=== PATIENT | female | born 1955 | race Caucasian/White ===

== ENCOUNTER → 2016-11-17 | Outpatient (CLI) | payer OTHER ==
[~2016-11-17] MED LIST: BIOT1CAP8 PO; CALC-461 PO; CITA20TA4 PO; CPR500 PO; HYDR-5688 PO; MISCCAP80 PO; MTR500 PO; MULT-506 PO; OMEG1CAP71 PO
== END | disposition home or self-care (01) ==
LOC: C.PATHSPEC 13:57
PROVIDERS: ATTEND Dermatology
DX: R23.8 Other skin changes (principal); D23.39 Other benign neoplasm of skin of other parts of face

== ENCOUNTER → 2016-12-29 | Day surgery (SDC) | payer OTHER ==
[2016-12-15 08:18] VITALS: Ht 162.6 cm; Wt 109.1 kg
[~2016-12-29] VITALS: Ht 162.6 cm; Wt 109.1 kg
[~2016-12-29] MED LIST changes: +ATROPINE SULFATE 0.1 MG/ML 5ML SYR IV PRN; +BUPIVACAINE 0.5 % 5 MG/1 ML PF 10ML VIAL ONE; +CEFAZOLIN 1000MG/55 ML D5W IV SCH; +CEFAZOLIN 2000 MG/60 ML D5W 60 ML IV SCH; +FENTANYL CITRATE INJ 50 MCG/1 ML 2 ML VIAL IV PRN; +FENTANYL CITRATE INJ 50 MCG/1 ML 2 ML VIAL ONE; +LACTATED RINGER'S 1000ML 1,000 ML IV SCH; +LIDOCAINE HCL 1% 20 ML VIAL ONE; +LIDOCAINE HCL 2% 2 ML VIAL (20MG/ML) ONE; +MIDAZOLAM HCL 1 MG/ML 2ML VIAL ONE; -MULT-506 PO; +ONDANSETRON INJ 2 MG/ML 2 ML VIAL IV PRN; +OXYCODONE/ACETAMINOPHEN 5-325 TAB PO PRN; +PROPOFOL IV EMULSION 10 MG/ML 20 ML VIAL IV ONE; +SODIUM CHLORIDE 0.9% 1000ML 1,000 ML IV SCH
--- NOTE | 2016-12-29 08:02 | History & Physical Bridge - [place] ---
H&P Re-Evaluation Bridge Note: I have examined the patient, reviewed the History & Physical and in the interval since the performance of the History & Physical I have noted the following changes of clinical significance: No changes noted
--- NOTE | 2016-12-29 08:49 | [facility] Post Operative Brief Note ---
Immediate Operative Summary Operative Date Dec 29, 2016. Pre-Operative Diagnosis Carpal Tunnel Syndrome, left Post-Operative Diagnosis same as preop Procedure(s) Performed Left Carpal Tunnel Release Surgeon Dr. Powell Conference [facility] Manager Surgeon(s) AMBER Hassan Estimated Blood Loss 0ml Findings ABOVE Specimens none per surgeon Anesthesia LOCAL IV SEDATION Complication(s) None Disposition
[2016-12-29 08:52] VITALS: TEMP 37
--- NOTE | 2016-12-29 08:54 | Discharge Instructions-SurgCtr ---
Discharge Instructions Date of Service Dec 29, 2016. Visit Reason for Visit: Left Carpal Tunnel Syndrome Discharge Discharge Diagnosis / Problem: SAME ABOVE Discharge Goals Goal(s): Decrease discomfort, Improve function Activity Recommendations Activity Limitations: as noted below Lifting Limitations: until after follow-up appointment Exercise/Sports Limitations: until after follow-up appointment Shower/Bathe: keep incision dry MEDICATIONS: * Resume previous medications unless instructed otherwise by your surgeon. * Always take pain medication on a full stomach or with food to avoid upset stomach. * Do not drink alcohol or drive while taking narcotics. * Ibuprofen or Tylenol may be taken if narcotic not needed. SPECIAL CARE INSTRUCTIONS: __ None _X_ Keep extremity elevated and iced x 48 hours; apply ice 20-30 minutes 8-10 times/day. May remove at night. __ Sling __24 hrs/day __ Remove at night __ Shoulder Immobilizer __ 24 hrs/day __ Remove at night _X_ Dressing _X_ Maintain until seen in office, may shower with plastic over site __ Remove dressings in 24-48 hours and then may shower __ Cover incisions with band-aids after showering __ Do not remove steri-strips Call physician if chills or temperature rises above 102 degrees or pain unrelieved by prescribed pain medications at . . Anesthesia . Post Anesthesia Instructions: If you have had General Anesthesia or IV Sedation: * Do not drive today. * Resume driving when surgeon permits. * Do not make important decisions or sign legal documents today. * Call surgeon for: 1. Temperature elevations greater than 101 degrees F. 2. Uncontrollable pain. 3. Excessive bleeding. 4. Persistent nausea and vomiting. 5. Medication intolerance (nausea, vomiting or rash). * For nausea and vomiting use only clear liquids such as: tea, soda, bouillon until nausea subsides, then gradually increase diet as tolerated. * If you have any concerns or questions, call your surgeon's office. If physician is unavailable and it is an emergency, call 911 or go to the nearest emergency room. . Diet Recommendations Home Diet: resume previous diet Procedures Procedures Performed: Left Carpal Tunnel Release Pending Studies Studies pending at discharge: no Medical Emergencies . Who to Call and When: Medical Emergencies: If at any time you feel your situation is an emergency, please call 911 immediately. . Non-Emergent Contact Non-Emergency issues call your: Primary Care Provider . . "Provider Documentation" section prepared by Luke Mendez.
[2016-12-29 09:14] VITALS: BP 133/80; PULSE 63; O2SAT 96
--- NOTE | 2016-12-29 09:18 | Anesthesia Progress Nt - [facility] ---
Anesthesia Post Op Note Date & Time Dec 29, 2016 at 09:19 Vital Signs Pain Intensity: 0 Vital Signs Past 12 Hours Date Time Temp Pulse Resp B/P Pulse Ox O2 Delivery O2 Flow Rate FiO2 12/29/16 09:14 63 18 133/80 96 Room Air 12/29/16 08:52 37 73 18 116/76 96 Room Air 12/29/16 07:45 36.7 87 16 141/82 96 Room Air Notes Mental Status: alert / awake / arousable, participated in evaluation Pt Amnestic to Procedure: Yes Nausea / Vomiting: adequately controlled Pain: adequately controlled Airway Patency, RR, SpO2: stable & adequate BP & HR: stable & adequate Hydration State: stable & adequate Anesthetic Complications: no major complications apparent
--- NOTE | 2016-12-29 10:20 | OPERATIVE REPORT ---
DATE OF OPERATION: 12/29/2016 PREOPERATIVE DIAGNOSIS: Left carpal tunnel syndrome. POSTOPERATIVE DIAGNOSIS: Same. PROCEDURE: Decompression median nerve release transverse carpal ligament, left wrist. SURGEON: Osman Powell MD HANDLING TECH: Luke Mendez PA-C ANESTHESIOLOGIST: Tal Lyn MD ANESTHESIA: Local with IV sedation. DRAINS: None. COMPLICATIONS: None. CONDITION: The patient tolerated the procedure well and returned to the recovery room in apparent satisfactory condition. INDICATIONS FOR SURGERY: Elise is a 61-year-old female who has had increasing pain, numbness and tingling in the left hand consistent with carpal tunnel syndrome. Went over treatment options and elected to go ahead and proceed with surgery. Procedure, expected outcomes and side effects were all explained in detail in the office. DESCRIPTION OF PROCEDURE: The patient was taken to the OR at which time she was placed supine on the operating table. The left hand was prepped and draped in the usual sterile fashion for this surgery. The anticipated incision site was infiltrated with 1% Xylocaine. A forearm tourniquet was placed on the arm and tourniquet was placed up to 250 mmHg. Incision was made vertically over the transverse carpal tunnel ligament. Dissection was done down until the palmar fascia was identified and divided with a 15-blade. The transverse carpal ligament was identified and also divided with the 15-blade and upbiting scissors. A small portion of the forearm fascia was divided also. Electrocautery was used to control any areas of bleeding. The nerve was freed up from any scar tissue and adequately decompressed. The wound then was copiously irrigated. It was closed then with interrupted 4-0 nylon sutures. Marcaine without Epinephrine was placed in the skin edges. It was closed in a layered fashion. We placed a sterile dressing of Xeroform, 4 x 4, volar splint, and an Samuel bandage. DISPOSITION: The patient was returned back to the recovery room in apparent satisfactory condition. I attest to the content of the Intraoperative Record and any orders documented therein. Any exceptio ns are noted below.
== END | disposition home or self-care (01) ==
LOC: X.SURG 07:33
PROVIDERS: ATTEND Orthopaedic Surgery
DX: G56.02 Carpal tunnel syndrome, left upper limb (principal); M19.90 Unspecified osteoarthritis, unspecified site; Z90.49 Acquired absence of other specified parts of digestive tract; Z90.710 Acquired absence of both cervix and uterus

== ENCOUNTER → 2017-03-23 | Day surgery (SDC) | payer OTHER ==
[2017-03-05 08:50] VITALS: Ht 162.6 cm; Wt 109.1 kg
[~2017-03-23] VITALS: Ht 162.6 cm; Wt 109.1 kg
[~2017-03-23] MED LIST changes: +BUPIVACAINE 0.5 % 5 MG/1 ML MPF 30ML VIAL ONE; -BUPIVACAINE 0.5 % 5 MG/1 ML PF 10ML VIAL ONE; -CEFAZOLIN 1000MG/55 ML D5W IV SCH; -CEFAZOLIN 2000 MG/60 ML D5W 60 ML IV SCH; +CEFAZOLIN 2000 MG/60 ML D5W IV SCH; +EpHEDrine SULFATE INJ 50 MG/ML AMP IV PRN; +ONDANSETRON INJ 2 MG/ML 2 ML VIAL ONE
--- NOTE | 2017-03-23 07:13 | [facility] Post Operative Brief Note ---
Immediate Operative Summary Operative Date Mar 23, 2017. Pre-Operative Diagnosis Right Carpal Tunnel Syndrome Post-Operative Diagnosis Same Procedure(s) Performed Right Carpal Tunnel Release Surgeon Dr Powell Sealing [employer] Canceling Machine Operator Surgeon(s) Marcus Mendez PA-C Estimated Blood Loss 0ml Findings ABOVE Specimens None Anesthesia LOCAL IV SEDATION Complication(s) None Disposition
[2017-03-23 07:15] VITALS: TEMP 36.2
--- NOTE | 2017-03-23 07:17 | Discharge Instructions-SurgCtr ---
Discharge Instructions Date of Service Mar 23, 2017. Visit Reason for Visit: Right Carpal Tunnel Syndrome, Pain Discharge Discharge Diagnosis / Problem: SAME ABOVE Discharge Goals Goal(s): Decrease discomfort, Improve function Activity Recommendations Activity Limitations: as noted below Lifting Limitations: until after follow-up appointment Exercise/Sports Limitations: until after follow-up appointment Shower/Bathe: keep incision dry Anesthesia . Post Anesthesia Instructions: If you have had General Anesthesia or IV Sedation: * Do not drive today. * Resume driving when surgeon permits. * Do not make important decisions or sign legal documents today. * Call surgeon for: 1. Temperature elevations greater than 101 degrees F. 2. Uncontrollable pain. 3. Excessive bleeding. 4. Persistent nausea and vomiting. 5. Medication intolerance (nausea, vomiting or rash). * For nausea and vomiting use only clear liquids such as: tea, soda, bouillon until nausea subsides, then gradually increase diet as tolerated. * If you have any concerns or questions, call your surgeon's office. If physician is unavailable and it is an emergency, call 911 or go to the nearest emergency room. . Instructions / Follow-Up Instructions / Follow-Up MEDICATIONS: * Resume previous medications unless instructed otherwise by your surgeon. * Always take pain medication on a full stomach or with food to avoid upset stomach. * Do not drink alcohol or drive while taking narcotics. * Ibuprofen or Tylenol may be taken if narcotic not needed. SPECIAL CARE INSTRUCTIONS: __ None _X_ Keep extremity elevated and iced x 48 hours; apply ice 20-30 minutes 8-10 times/day. May remove at night. __ Sling __24 hrs/day __ Remove at night __ Shoulder Immobilizer __ 24 hrs/day __ Remove at night _X_ Dressing _X_ Maintain until seen in office, may shower with plastic over site __ Remove dressings in 24-48 hours and then may shower __ Cover incisions with band-aids after showering __ Do not remove steri-strips Call physician if chills or temperature rises above 102 degrees or pain unrelieved by prescribed pain medications at . . Diet Recommendations Home Diet: resume previous diet Procedures Procedures Performed: Right Carpal Tunnel Release Pending Studies Studies pending at discharge: no Medical Emergencies . Who to Call and When: Medical Emergencies: If at any time you feel your situation is an emergency, please call 911 immediately. . Non-Emergent Contact Non-Emergency issues call your: Primary Care Provider . . "Provider Documentation" section prepared by Luke Mendez. .
--- NOTE | 2017-03-23 07:40 | OPERATIVE REPORT ---
DATE OF OPERATION: 03/23/2017 PREOPERATIVE DIAGNOSIS: Right carpal tunnel syndrome. POSTOPERATIVE DIAGNOSIS: Same. PROCEDURE: Decompression median nerve release transverse carpal ligament, right wrist. SURGEON: Dr. Powell [employer]AL[employer] ASS[employer]ANCE LAB TECHNICIAN: Luke Mendez PA-C. ANESTHESIOLOGIST: Dr. Leblanc. ANESTHESIA: Local with IV sedation. DRAINS: None. COMPLICATIONS: None. CONDITION: The patient tolerated the procedure well and returned to the recovery room in apparent satisfactory condition. INDICATIONS FOR SURGERY: Elise is a 61-year-old female well-known to me having had left carpal tunnel surgery done back in December, who presents back in order to have her right hand done. Procedure, expected outcomes and side effects were all explained in detail. DESCRIPTION OF PROCEDURE: The patient was taken to the OR at which time, she was placed supine on the operating table. The right hand was prepped and draped in the usual sterile fashion for this surgery. The anticipated incision site was infiltrated with 1% Xylocaine. A forearm tourniquet was placed on the arm and tourniquet was placed up to 250 mmHg. Incision was made vertically over the transverse carpal tunnel ligament. Dissection was done down until the palmar fascia was identified and divided with a 15-blade. The transverse carpal ligament was identified and also divided with the 15-blade and upbiting scissors. A small portion of the forearm fascia was divided also. Electrocautery was used to control any areas of bleeding. The nerve was freed up from any scar tissue and adequately decompressed. The wound then was copiously irrigated. It was closed then with interrupted 4-0 nylon sutures. Marcaine without Epinephrine was placed in the skin edges. It was closed in a layered fashion. We placed a sterile dressing of Xeroform, 4 x 4, volar splint, and an Samuel bandage. I attest to the content of the Intraoperative Record and any orders documented therein. Any exception s are noted below.
[2017-03-23 07:41] VITALS: BP 138/80; PULSE 65; O2SAT 95
--- NOTE | 2017-03-23 07:42 | Anesthesia Progress Nt - [facility] ---
Anesthesia Post Op Note Date & Time Mar 23, 2017 at 07:42 Vital Signs Pain Intensity: 0 Vital Signs Past 12 Hours Date Time Temp Pulse Resp B/P (MAP) Pulse Ox O2 Delivery O2 Flow Rate FiO2 03/23/17 07:41 65 16 138/80 (99) 95 Room Air 03/23/17 07:15 36.2 80 16 121/72 (88) 95 Room Air 03/23/17 06:21 36.7 84 16 153/84 (107) 95 Room Air Notes Mental Status: alert / awake / arousable, participated in evaluation Pt Amnestic to Procedure: Yes Nausea / Vomiting: adequately controlled Pain: adequately controlled Airway Patency, RR, SpO2: stable & adequate BP & HR: stable & adequate Hydration State: stable & adequate Anesthetic Complications: no major complications apparent
== END | disposition home or self-care (01) ==
LOC: X.SURG 06:09
PROVIDERS: ATTEND Orthopaedic Surgery
DX: G56.01 Carpal tunnel syndrome, right upper limb (principal); Z90.49 Acquired absence of other specified parts of digestive tract; Z90.710 Acquired absence of both cervix and uterus

== ENCOUNTER → 2017-07-01 | Outpatient (CLI) | payer OTHER ==
[~2017-07-01] MED LIST changes: -ATROPINE SULFATE 0.1 MG/ML 5ML SYR IV PRN; -BUPIVACAINE 0.5 % 5 MG/1 ML MPF 30ML VIAL ONE; -CEFAZOLIN 2000 MG/60 ML D5W IV SCH; -EpHEDrine SULFATE INJ 50 MG/ML AMP IV PRN; -FENTANYL CITRATE INJ 50 MCG/1 ML 2 ML VIAL IV PRN; -FENTANYL CITRATE INJ 50 MCG/1 ML 2 ML VIAL ONE; -LACTATED RINGER'S 1000ML 1,000 ML IV SCH; -LIDOCAINE HCL 1% 20 ML VIAL ONE; -LIDOCAINE HCL 2% 2 ML VIAL (20MG/ML) ONE; -MIDAZOLAM HCL 1 MG/ML 2ML VIAL ONE; -ONDANSETRON INJ 2 MG/ML 2 ML VIAL IV PRN; -ONDANSETRON INJ 2 MG/ML 2 ML VIAL ONE; -OXYCODONE/ACETAMINOPHEN 5-325 TAB PO PRN; -PROPOFOL IV EMULSION 10 MG/ML 20 ML VIAL IV ONE; -SODIUM CHLORIDE 0.9% 1000ML 1,000 ML IV SCH
--- NOTE | 2017-07-01 15:58 | MAMMOGRAPHY REPORT ---
BILATERAL DIGITAL SCREENING MAMMOGRAM TOMOSYNTHESIS WITH CAD: 07/01/2017 CLINICAL HISTORY: Routine screening. Patient has no complaints. TECHNIQUE: Breast tomosynthesis in addition to standard 2D mammography was performed. Current study was also evaluated with a Computer Aided Detection (CAD) system. COMPARISON: Comparison is made to exams dated: 06/29/2016 mammogram, 06/25/2015 mammogram - [facility] [address], 07/27/2014 mammogram, 07/21/2013 mammogram, 07/15/2012 mammogram, and 07/07/2011 ma mmogram - [facility]. BREAST COMPOSITION: There are scattered areas of fibroglandular density in both breasts. FINDINGS: No suspicious masses, calcifications, or areas of architectural distortion are noted in ei ther breast. There has been no significant interval change compared to prior exams. IMPRESSION: ACR BI-RADS CATEGORY 1: NEGATIVE There is no mammographic evidence of malignancy. A 1 year screening mammogram is recommended. The pa tient will receive written notification of the results. Approximately 10% of breast cancers are not detected with mammography. A negative mammographic report should not delay biopsy if a clinically suggestive mass is present. Radha Jones M.D. ah/:07/01/2017 15:50:26 [employer] Professor: Jaimie JEAN(R)(M), [facility] letter sent: Normal 1/2 BI-RADS Code: ACR BI-RADS Category 1: Negative
== END | disposition home or self-care (01) ==
LOC: C.MAMM 09:25
PROVIDERS: ATTEND Obstetrics & Gynecology
DX: Z12.31 Encounter for screening mammogram for malignant neoplasm of breast (principal)

== ENCOUNTER 2017-07-03 20:37 | Inpatient (IN) | payer OTHER ==
[~2017-07-03] VITALS: Ht 162.6 cm; Wt 107.4 kg
[~2017-07-03 20:37] MED LIST changes: -BIOT1CAP8 PO; -CPR500 PO; -MTR500 PO
[2017-07-03] MEDS ORDERED: SODIUM CHLORIDE 0.9% 1000ML 1,000 ML IV STA (21:06)
[2017-07-03] MEDS ORDERED: ONDANSETRON INJ 2 MG/ML 2 ML VIAL IV STA (21:06)
[2017-07-03] MEDS ORDERED: MoRPHine SULFATE 4 MG/ML 1 ML CARP\\VIAL IV STA (21:06)
[2017-07-03] MEDS ORDERED: SODIUM CHLORIDE 0.9% 1000ML 1,000 ML IV ONE (21:06)
[2017-07-03] MEDS ORDERED: ACETAMINOPHEN 500 MG TAB PO STA (21:06)
--- NOTE | 2017-07-03 21:13 | EMERGENCY ROOM VISIT NOTE ---
History Report prepared by Pro: Rangel Luu Under the Supervision of: Dr. Luke Zaldivar M.D. First contact with patient: 20:58 Chief Complaint: ABDOMINAL PAIN Stated Complaint: PAINS IN LOWER ABDOMAN Nursing Triage Summary: Pt complains of lower abdominal pain for a week. +nausea and diarrhea. Pt has history of diverticulitis and this feels similar. Pt reports 2 weeks ago she ate corn every night for supper. History of Present Illness The patient is a 61 year old female who presents to the Emergency Room with complaints of constant lower abdominal pain that started five days ago. She rates her discomfort as an 8/10 in severity. She reports that the pain is worsened with a deep breath. The patient states that she has also been experiencing intermittent diarrhea, which she states started watery and progressed to soft stool. She states that she has been experiencing nausea as well. The patient admits that she has had similar symptoms in the past when she had Diverticulitis. She reports that she was in the hospital for a week and was given anabiotics for her Diverticulitis, but denies any surgeries. The patient states that she has not seen anyone for her current symptoms yet because she thought it was due to a "stomach bug". She reports that she did not know that she had a fever until she came to the ED. She states that she has been growing and eating her own corn for the last week and is concerned she has Diverticulitis again. The patient admits to a history of a hysterectomy in 2005 and a cholecystectomy, but denies an appendectomy. She also denies a history of Clostridium Difficile. The patient reports that her PCP is Dr. Kelly. The patient denies vomiting, cough, SOB, chest pain, melena, hematochezia, sick contact, recent travel, and well water usage. Source of History: patient, spouse/significant other Onset: five days ago Position: abdomen Symptom Intensity: 8/10 Timing: constant Modifying Factors (Worsening): other (deep breath) Associated Symptoms: + fevers, + nausea, + diarrhea, No cough, No chest pain , No SOB, No vomiting, No melena, No hematochezia Review of Systems See HPI for pertinent positives & negatives. A total of 10 systems reviewed and were otherwise negative. Past Medical & Surgical Surgical Problems: (1) S/P cholecystectomy (2) S/P hysterectomy Old medical records were reviewed. Nurse's notes were reviewed and I agree with. Family History FHx: cancer Social History Smoking Status: Never Smoker Alcohol Use: none Drug Use: none Marital Status: Housing Status: lives with significant other Current/Historical Medications Scheduled Biotin (Biotin), Unknown Dose PO DAILY Calcium Carbonate-Cholecalcife (Calcium+D3 600-800 mg-Unit), 1 TAB PO QAM Citalopram Hydrobromide (Citalopram Hydrobromide), 20 MG PO QAM [place] 3 Fatty Acids-[place] 6 Fa ([place] 3-6-9 Complex), 1 CAP PO QAM Probiotic Product (Probiotic), 1 CAP PO QAM Allergies Coded Allergies: No Known Allergies (Unverified , 03/23/17) Physical Exam Vital Signs Date Time Temp Pulse Resp B/P (MAP) Pulse Ox O2 Delivery O2 Flow Rate FiO2 07/04/17 00:03 94 16 98/48 94 Room Air 07/03/17 23:00 95 16 108/63 94 Room Air 07/03/17 22:07 94 16 110/58 94 Room Air 07/03/17 20:40 38.4 109 20 141/84 95 Room Air Physical Exam General: Well developed well nourished non ill appearing middle aged female in no acute distress, breathing comfortably on room air. Normal speech HEENT: Normal cephalic atraumatic. Pupils are equal round and reactive to light. Extraocular movements are intact. Oropharynx is pink with moist mucous membranes. No swelling of the mouth lips or tongue. Neck: Supple with a midline trachea. No meningeal signs or stiffness, no JVD or bruits. No Stridor. Chest: Clear to auscultation bilaterally. No wheezes or rhonchi. No increased work of breathing. Heart: regular rate and rhythm. Abdomen: Soft tenderness in right lower abdomen, nondistended without rebound guarding or rigidity. Extremities: No cyanosis clubbing or edema. No calf tenderness or assymetry Spine/Back. Non tender to palpation. No CVA tenderness Skin: Good turgor without rashes. Neurologic exam: Cranial nerves two through 12 are intact. Motor and sensation are intact and symmetrical throughout. Medical Decision & Procedures ER Provider Diagnostic Interpretation: CT results as stated below per my review and radiologist interpretation: ABDOMEN AND PELVIS CT WITHOUT CONTRAST CT DOSE: 1602.33 mGy.cm HISTORY: Lower abdominal pain. eval for diverticulitis TECHNIQUE: Multiaxial CT images of the abdomen and pelvis were performed without contrast. A dose lowering technique was utilized adhering to the principles of ALARA. COMPARISON STUDY: Abdomen and pelvis CT 01/02/2015. FINDINGS: Focal thickening and pericolonic fat stranding within the mid descending colon consistent with acute diverticulitis. No perforation or abscess identified at this time. The lung bases are clear. Mild hepatic steatosis. The unenhanced spleen, adrenal glands, and pancreas are unremarkable. Cholecystectomy. Right-sided nephrolithiasis. No hydronephrosis. Normal left kidney. No retroperitoneal lymphadenopathy. Normal bladder. Hysterectomy. No evidence for bowel obstruction. Normal appendix. IMPRESSION: 1. Acute diverticulitis involving the mid descending colon. No perforation or abscess. 2. Right-sided nephrolithiasis. No hydronephrosis. 3. Cholecystectomy. 4. Normal appendix. Electronically signed by: Lb Mueller M.D. 07/03/2017 10:27 PM Dictated Date/Time: 07/03/2017 10:20 PM Laboratory Results 07/03/17 21:20 Red Blood Count 3.81, Mean Corpuscular Volume 96.3, Mean Corpuscular Hemoglobin 36.0, Mean Corpuscular Hemoglobin Concent 37.3, Mean Platelet Volume 10.3, Neutrophils (%) (Auto) 68.9, Lymphocytes (%) (Auto) 22.1, Monocytes (%) (Auto) 8.3, Eosinophils (%) (Auto) 0.4, Basophils (%) (Auto) 0.1, Neutrophils # (Auto) 8.42, Lymphocytes # (Auto) 2.70, Monocytes # (Auto) 1.01, Eosinophils # (Auto) 0.05, Basophils # (Auto) 0.01 07/03/17 21:20 Test 07/03/17 21:20 07/03/17 21:26 White Blood Count 12.22 K/uL (4.8-10.8) Red Blood Count 3.81 M/uL (4.2-5.4) Hemoglobin 13.7 g/dL (12.0-16.0) Hematocrit 36.7 % (37-47) Mean Corpuscular Volume 96.3 fL (80-100) Mean Corpuscular Hemoglobin 36.0 pg (25-34) Mean Corpuscular Hemoglobin Concent 37.3 g/dl (32-36) Platelet Count 260 K/uL (130-400) Mean Platelet Volume 10.3 fL (7.4-10.4) Neutrophils (%) (Auto) 68.9 % Lymphocytes (%) (Auto) 22.1 % Monocytes (%) (Auto) 8.3 % Eosinophils (%) (Auto) 0.4 % Basophils (%) (Auto) 0.1 % Neutrophils # (Auto) 8.42 K/uL (1.4-6.5) Lymphocytes # (Auto) 2.70 K/uL (1.2-3.4) Monocytes # (Auto) 1.01 K/uL (0.11-0.59) Eosinophils # (Auto) 0.05 K/uL (0-0.5) Basophils # (Auto) 0.01 K/uL (0-0.2) RDW Standard Deviation 44.1 fL (36.4-46.3) RDW Coefficient of Variation 13.9 % (11.5-14.5) Immature Granulocyte % (Auto) 0.2 % Immature Granulocyte # (Auto) 0.03 K/uL (0.00-0.02) Anion Gap 8.0 mmol/L (3-11) Est Creatinine Clear Calc Drug Dose 102.3 ml/min Estimated GFR () 109.1 Estimated GFR (Non- 94.2 BUN/Creatinine Ratio 14.9 (10-20) Calcium Level 8.5 mg/dl (8.5-10.1) Total Bilirubin 0.8 mg/dl (0.2-1) Direct Bilirubin 0.2 mg/dl (0-0.2) Aspartate Amino Transf (AST/SGOT) 52 U/L (15-37) Alanine Aminotransferase (ALT/SGPT) 81 U/L (12-78) Alkaline Phosphatase 80 U/L (45-117) Total Protein 7.5 gm/dl (6.4-8.2) Albumin 3.6 gm/dl (3.4-5.0) Lipase 131 U/L (73-393) Bedside Lactic Acid Venous 0.82 mmol/L (0.90-1.70) Laboratory studies as stated above per my review. Medications Administered Medications (Trade) Dose Ordered Sig/Emmett Route Start Time Stop Time Status Last Admin Dose Admin Sodium Chloride 1,000 ml @ 999 mls/hr Q1H1M STAT IV 07/03/17 21:06 07/03/17 22:06 DC 07/03/17 21:18 999 MLS/HR Sodium Chloride 1,000 ml @ 150 mls/hr Q6H40M ONCE IV 07/03/17 21:06 07/04/17 03:45 07/03/17 21:18 150 MLS/HR Acetaminophen (Tylenol Tab) 1,000 mg NOW STAT PO 07/03/17 21:06 07/03/17 21:09 DC 07/03/17 21:17 1,000 MG Ondansetron HCl (Zofran Inj) 4 mg NOW STAT IV 07/03/17 21:06 07/03/17 21:09 DC 07/03/17 21:17 4 MG Morphine Sulfate (MoRPHine SULFATE INJ) 4 mg NOW STAT IV 07/03/17 21:06 07/03/17 21:09 DC 07/03/17 21:18 4 MG Ciprofloxacin/ Dextrose (Cipro / D5W) 400 mg NOW STAT IV 07/03/17 23:23 07/03/17 23:24 DC 07/04/17 00:47 400 MG Metronidazole (Flagyl / Nss) 500 mg NOW STAT IV 07/03/17 23:23 07/03/17 23:24 DC 07/03/17 23:32 500 MG ED Course 2101: Past medical records reviewed. The patient was evaluated in room C11B, and a complete history and physical examination were performed. 2106: Ordered Morphine Sulfate 4 mg IV, Zofran Injection 4 mg IV, Tylenol Tab 1000 mg PO, Sodium Chloride 1000 ml @ 150 mls/hr IV, Sodium Chloride 1000 ml @ 999 mls/hr IV. 2323: Ordered Metronidazole 500 mg IV, Cipro/ D5W 400 mg IV. 2344: I discussed the patient's case with Dr. Jones, [facility] Hospitalist. He understands the patient's condition and agrees to accept the patient. The patient will be further evaluated. Medical Decision Differentials include, but are not limited to; diverticulitis, Clostridium Difficile, colitis, appendicitis, viral illness, and electrolyte/metabolic abnormality. This patient comes in as described above. She has left lower abdominal pain. She has a history diverticulitis in 2014. She's been having diarrhea and has felt sick all week. She's had no recent antibiotics. IV access was established and she was hydrated with IV normal saline. She was given Tylenol 1 g by mouth for fever blood cultures were obtained as well as lactic acid. As well as blood testing as well. Her lactic acid is not significantly elevated. Her white count is moderately elevated. She has been normotensive. She was hydrated with IV normal saline. She was given morphine 4 mg IV and Zofran 4 mg IV for pain and nausea management. She has no peritonitis. CAT scan confirms a diabetic diagnosis of diverticulitis. Last time she had this she was admitted for a week as she had some microperforations but was ultimately managed medically. Given the length of symptoms as well as her fever and white count and age, I do think she needs to be admitted for IV antibiotics at least overnight. She was given IV Cipro and IV Flagyl. She is tolerating these well before. [facility] and she was seen in the ER by the [facility] hospitalist team. Medication Reconcilliation Current Medication List: was personally reviewed by me Blood Pressure Screening Patient's blood pressure: Normal blood pressure Consults Time Called: 2344 Consulting Physician: Dr. Jones, [facility] Hospitalist Returned Call: 2343 I discussed the patient's case with Dr. Jones, [facility] Hospitalist. He understands the patient's condition and agrees to accept the patient. The patient will be further evaluated. Impression Primary Impression: Acute diverticulitis Additional Impression: LLQ abdominal pain Scribe Attestation The scribe's documentation has been prepared under my direction and personally reviewed by me in its entirety. I confirm that the note above accurately reflects all work, treatment, procedures, and medical decision making performed by me. Departure Information Dispostion Being Evaluated By Hospitalist Referrals RV. Fraga MD (PCP) Patient Instructions My [facility] Problem Qualifiers
[2017-07-03] MEDS ORDERED: BIOT1CAP8 PO (21:32)
[2017-07-03 21:38] LABS: BASO % 0.1 %; BASO ABS # 0.01 K/uL (0-0.2); COMPLETE YES; EOS % 0.4 %; HEMATOCRIT 36.7 % (37-47); IG% 0.2 %; LYMPH % 22.1 %; MEAN CELL VOLUME 96.3 fL (80-100); MEAN CORPUSCULAR HGB CONC 37.3 g/dl (32-36); MEAN PLATELET VOLUME 10.3 fL (7.4-10.4); MONO % 8.3 %; NEUT % 68.9 %; PLATELET COUNT 260 K/uL (130-400); RED BLOOD COUNT 3.81 M/uL (4.2-5.4); WHITE BLOOD COUNT 12.22 K/uL (4.8-10.8)
[2017-07-03 22:07] LABS: BUN/CREATININE RATIO 14.9 (10-20); CALCIUM 8.5 mg/dl (8.5-10.1); CREATININE 0.7 mg/dl (0.60-1.20); POTASSIUM 3.6 mmol/L (3.5-5.1)
--- NOTE | 2017-07-03 22:28 | DIAGNOSTIC IMAGING REPORT ---
ABDOMEN AND PELVIS CT WITHOUT CONTRAST CT DOSE: 1602.33 mGy.cm HISTORY: Lower abdominal pain. eval for diverticulitis TECHNIQUE: Multiaxial CT images of the abdomen and pelvis were performed without contrast. A dose lowering technique was utilized adhering to the principles of ALARA. COMPARISON STUDY: Abdomen and pelvis CT 01/02/2015. FINDINGS: Focal thickening and pericolonic fat stranding within the mid descending colon consistent with acute diverticulitis. No perforation or abscess identified at this time. The lung bases are clear. Mild hepatic steatosis. The unenhanced spleen, adrenal glands, and pancreas are unremarkable. Cholecystectomy. Right-sided nephrolithiasis. No hydronephrosis. Normal left kidney. No retroperitoneal lymphadenopathy. Normal bladder. Hysterectomy. No evidence for bowel obstruction. Normal appendix. IMPRESSION: 1. Acute diverticulitis involving the mid descending colon. No perforation or abscess. 2. Right-sided nephrolithiasis. No hydronephrosis. 3. Cholecystectomy. 4. Normal appendix. Electronically signed by: Lb Mueller M.D. 07/03/2017 10:27 PM Dictated Date/Time: 07/03/2017 10:20 PM
[2017-07-03] MEDS ORDERED: METRONIDAZOLE 500MG / 100ML NSS IV STA (23:23)
[2017-07-03] MEDS ORDERED: CIPROFLOXACIN 400MG / 200ML D5W IV STA (23:23)
--- NOTE | 2017-07-04 00:43 | History and Physical ---
History & Physical Date & Time of Service: Jul 04, 2017 at 00:41 Chief Complaint: Pains In Lower Abdoman Primary Care Physician: RV. Fraga MD History of Present Illness Source: patient 61F with a PMHx of depression p/w a 5 day history of left sided abdominal pain and loose stools while eating. The pain has gotten to the point where she thinks she has diverticulitis again. She first had diverticulitis 4 years ago and was also hospitalized. 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 She reports fevers. She feels that the pain has improved since she came to the ER. Her regular PCP is Dr. Kelly. She has non bloody loose stools almost every time she eats. ROS: +nausea, No chest pain, no SOB, no dyspnea on exertion, no palpitations, no fevers, no chills, no vomiting, no dysuria, no rash. PMHx: Depression, pt also mentioned to me that she has a heart murmur. SHx: , lives with Past Medical/Surgical History Surgical Problems: (1) S/P cholecystectomy Status: Resolved (2) S/P hysterectomy Status: Resolved Family History FHx: cancer Social History Smoking Status: Never Smoker Smokeless Tobacco Use: No Alcohol Use: none Drug Use: none Marital Status: Housing status: lives with family Immunizations History of Influenza Vaccine: Unknown History of Tetanus Vaccine?: Unknown History of Pneumococcal: Unknown History of Hepatitis B Vaccine: Unknown Multi-Drug Resistant Organisms History of MDRO: No Allergies Coded Allergies: No Known Allergies (Unverified , 03/23/17) Home Medications Scheduled Biotin (Biotin), Unknown Dose PO DAILY Calcium Carbonate-Cholecalcife (Calcium+D3 600-800 mg-Unit), 1 TAB PO QAM Citalopram Hydrobromide (Citalopram Hydrobromide), 20 MG PO QAM [place] 3 Fatty Acids-[place] 6 Fa ([place] 3-6-9 Complex), 1 CAP PO QAM Probiotic Product (Probiotic), 1 CAP PO QAM Review of Systems Constitutional: + fever, No chills, No sweats, No weight loss Respiratory: No cough, No sputum, No shortness of breath, No dyspnea on exertion Abdomen: + nausea, + diarrhea, No pain, No vomiting, No constipation Musculoskeletal: No joint pain, No muscle pain Genitourinary - Female: No dysuria, No urinary frequency, No urinary urgency Integumentary: No rash Physical Exam Vital Signs Date Time Temp Pulse Resp B/P (MAP) Pulse Ox O2 Delivery O2 Flow Rate FiO2 07/04/17 00:03 94 16 98/48 94 Room Air 07/03/17 23:00 95 16 108/63 94 Room Air 07/03/17 22:07 94 16 110/58 94 Room Air 07/03/17 20:40 38.4 109 20 141/84 95 Room Air General Appearance: WD/WN, no apparent distress, + obese Eyes: PERRL, EOMI Respiratory/Chest: chest non-tender, lungs clear, normal breath sounds, no respiratory distress, no accessory muscle use Cardiovascular: regular rate, rhythm, no edema, no gallop, no JVD, normal peripheral pulses Abdomen/GI: + pertinent finding (rebound tenderness in the LLQ and LUQ, no rebound on the right, pain on light palpation in the LUQ. Good Bowel sounds. ) Extremities/Musculoskelatal: no pedal edema Neurologic/Psych: no motor/sensory deficits, alert, normal mood/affect, oriented x 3 Skin: no rash Diagnostics Laboratory Results Results Past 24 Hours Test 07/03/17 21:20 07/03/17 21:26 Range/Units White Blood Count 12.22 4.8-10.8 K/uL Red Blood Count 3.81 4.2-5.4 M/uL Hemoglobin 13.7 12.0-16.0 g/dL Hematocrit 36.7 37-47 % Mean Corpuscular Volume 96.3 80-100 fL Mean Corpuscular Hemoglobin 36.0 25-34 pg Mean Corpuscular Hemoglobin Concent 37.3 32-36 g/dl Platelet Count 260 130-400 K/uL Mean Platelet Volume 10.3 7.4-10.4 fL Neutrophils (%) (Auto) 68.9 % Lymphocytes (%) (Auto) 22.1 % Monocytes (%) (Auto) 8.3 % Eosinophils (%) (Auto) 0.4 % Basophils (%) (Auto) 0.1 % Neutrophils # (Auto) 8.42 1.4-6.5 K/uL Lymphocytes # (Auto) 2.70 1.2-3.4 K/uL Monocytes # (Auto) 1.01 0.11-0.59 K/uL Eosinophils # (Auto) 0.05 0-0.5 K/uL Basophils # (Auto) 0.01 0-0.2 K/uL RDW Standard Deviation 44.1 36.4-46.3 fL RDW Coefficient of Variation 13.9 11.5-14.5 % Immature Granulocyte % (Auto) 0.2 % Immature Granulocyte # (Auto) 0.03 0.00-0.02 K/uL Sodium Level 138 136-145 mmol/L Potassium Level 3.6 3.5-5.1 mmol/L Chloride Level 104 98-107 mmol/L Carbon Dioxide Level 26 21-32 mmol/L Anion Gap 8.0 3-11 mmol/L Blood Urea Nitrogen 10 7-18 mg/dl Creatinine 0.70 0.60-1.20 mg/dl Est Creatinine Clear Calc Drug Dose 102.3 ml/min Estimated GFR () 109.1 Estimated GFR (Non- 94.2 BUN/Creatinine Ratio 14.9 10-20 Random Glucose 115 70-99 mg/dl Calcium Level 8.5 8.5-10.1 mg/dl Total Bilirubin 0.8 0.2-1 mg/dl Direct Bilirubin 0.2 0-0.2 mg/dl Aspartate Amino Transf (AST/SGOT) 52 15-37 U/L Alanine Aminotransferase (ALT/SGPT) 81 12-78 U/L Alkaline Phosphatase 80 45-117 U/L Total Protein 7.5 6.4-8.2 gm/dl Albumin 3.6 3.4-5.0 gm/dl Lipase 131 73-393 U/L Bedside Lactic Acid Venous 0.82 0.90-1.70 mmol/L Microbiology Results 07/03/17 Blood Culture, Received Pending 07/03/17 Blood Culture, Received Pending Diagnostic Radiology ABDOMEN AND PELVIS CT WITHOUT CONTRAST CT DOSE: 1602.33 mGy.cm HISTORY: Lower abdominal pain. eval for diverticulitis TECHNIQUE: Multiaxial CT images of the abdomen and pelvis were performed without contrast. A dose lowering technique was utilized adhering to the principles of ALARA. COMPARISON STUDY: Abdomen and pelvis CT 01/02/2015. FINDINGS: Focal thickening and pericolonic fat stranding within the mid descending colon consistent with acute diverticulitis. No perforation or abscess identified at this time. The lung bases are clear. Mild hepatic steatosis. The unenhanced spleen, adrenal glands, and pancreas are unremarkable. Cholecystectomy. Right-sided nephrolithiasis. No hydronephrosis. Normal left kidney. No retroperitoneal lymphadenopathy. Normal bladder. Hysterectomy. No evidence for bowel obstruction. Normal appendix. IMPRESSION: 1. Acute diverticulitis involving the mid descending colon. No perforation or abscess. 2. Right-sided nephrolithiasis. No hydronephrosis. 3. Cholecystectomy. 4. Normal appendix. Impression Assessment and Plan 61F with a PMHx of depression p/w a 5 day history of left sided abdominal pain and loose stools while eating. CT showed acute diverticulitis. Pt was started on IV Cipro 400mg Q12 and Flagyl 500mg IV Q8H and made NPO except meds and put on IVF. Given first ABx dose in the ER. Acute Diverticulitis - CT did not show perforation or abscess, clinically pt does not have acute abdomen. - NPO except meds. - Cipro 400mg Q12 IV - Flagyl 500mg IV Q8H and made NPO. - Pain control with Tylenol 650mg PO Q6H PRN or Morphine 4mg IV Q4 PRN severe pain. - IVF: 125mls/hr of D5W+1/2NSS +20meq - Progress diet as tolerated. Mood Continued home med Citalopram 20mg QAM PO. Neuro: AAOx3 DVT Proph: CDs Social - No concerns. Dispo - Med Surg, Admit Full Code Attending Addendum: I have physically seen and examined this patient, have directed the resident's medical activities, and agree with the H&P as noted above with the following exceptions as noted. The patient is awake, alert and oriented 3, well-developed and well-nourished , normocephalic and atraumatic, lying in bed and in no acute distress. HEENT--PERRL, EOMI, mucous membranes and oropharynx dry. Neck--supple, no JVD or bruits, thyroid normal, trachea midline, no adenopathy. Heart--normal S1 and S2, no extra beats, no murmurs, rubs or gallops. Lungs--clear bilaterally with good air movement, no respiratory distress, no accessory muscle use. Abdomen--normal bowel sounds and soft, mildly tender LLQ, nondistended, no hernias or masses, no organomegaly, and obese. Extremities--no cyanosis, clubbing or edema. There are good distal pulses b/l. Dermatologic--normal skin turgor, normal color, warm and dry, no abnormal lymph nodes, no rash. Neurologic--cranial nerves II through XII grossly intact. Rheumatologic--normal range of motion, nontender, muscles and joints. Psychiatric--normal affect. Assessment and Plan: Acute diverticulitis-- Admitted to the medical floor. Nothing by mouth except medications. Cipro 400 mg IV every 12 hours. Flagyl 500 mg IV every 8 hours. Zofran 4 mg IV every 6 hours when necessary. D5 half-normal saline with KCl 20 mEq at 125 ML's per hour. Advised to avoid excessive amounts of any high-fiber foods at once, such as the excessive amounts of corn that precipitated this attack. She was advised to begin a low residue diet when she begins to eat again, and gradually resume higher fiber foods. She is also advised to follow-up with her PCP and/or director of first impressions for a colonoscopy after her symptoms have resolved. Level of Care Med/Surg Advanced Directives Existing Advance Directive: No Existing Living Will: No Existing Power of Bulk Materials Handling Plant Operator: No Resuscitation Status FULL RESUSCITATION VTE Prophylaxis VTE Risk Assessment Done? Y/N: Yes Risk Level: Low Given or contraindicated: SCD's Social Service Consult None Apply Resident Involvement: Resident Care Provided Care Provided: Adult Hospital Medicine
[2017-07-04] MEDS ORDERED: ALUMINUM/MAGNESIUM/SIMETH (MAALOX MAX) 30 ML UDC PO PRN (00:45)
[2017-07-04] MEDS ORDERED: ACETAMINOPHEN 325 MG TAB PO PRN (00:45)
[2017-07-04] MEDS ORDERED: ZOLPIDEM TARTRATE 5 MG TAB PO PRN ×2 (00:45)
[2017-07-04] MEDS ORDERED: MAGNESIUM HYDROXIDE SUSP 30 ML UDC PO PRN (00:45)
[2017-07-04] MEDS ORDERED: POLYETHYLENE (MIRALAX) 17 GM PACK PO PRN (00:45)
[2017-07-04] MEDS ORDERED: MoRPHine SULFATE 4 MG/ML 1 ML CARP\\VIAL IV PRN (01:15)
[2017-07-04 01:40] VITALS: BP 111/72; PULSE 77; TEMP 36.8; O2SAT 94
[2017-07-04 01:41] VITALS: Ht 162.6 cm; Wt 107.4 kg
[2017-07-04] MEDS ORDERED: INFLUENZA ADMINISTRATION CHARGE ONE (02:45)
[2017-07-04] MEDS: D5W AND 1/2NSS + 20MEQ KCL 1,000 ML IV SCH ×3 (02:45→17:58)
[2017-07-04] MEDS ORDERED: INFLUENZA VIRUS QUAD VACCINE 0.5 ML SYR IM. ONE (02:45)
[2017-07-04 07:06] VITALS: BP 118/70; PULSE 58; TEMP 36.6; O2SAT 97
[2017-07-04] MEDS: METRONIDAZOLE / NSS 500 MG in PREMIXED NSS 100 ML IV SCH ×2 (08:18→15:45)
[2017-07-04] MEDS: CITALOPRAM 20 MG TAB PO SCH (08:19)
[2017-07-04 08:51] VITALS: O2SAT 97
[2017-07-04] MEDS: ONDANSETRON INJ 2 MG/ML 2 ML VIAL IV PRN ×2 (09:56→19:47)
[2017-07-04] MEDS ORDERED: CIPROFLOXACIN / D5W 400 MG in PREMIXED IN D5W 200 ML IV SCH (12:00)
[2017-07-04 14:56] VITALS: BP 104/67; PULSE 64; TEMP 36.7; O2SAT 97
--- NOTE | 2017-07-04 16:46 | Progress Note ---
Progress Note Date of Service Jul 04, 2017. Progress Note seen in f/u from early am admission doing better less pain moving around well feeling hungry vitals noted nad breathing unlabored abd soft nd. (+) LLQ tenderness no guarding no rebound no rigidity diverticulitis - improving rapidly. advance diet, once tolerating regular food will change abx to PO and once clearly she can tolerate PO abx can go home ( hopefully in next 24hrs)
[2017-07-04] MEDS: METRONIDAZOLE 500 MG TAB PO SCH (21:17)
[2017-07-04] MEDS: CIPROFLOXACIN 500 MG TAB PO SCH (21:17)
[2017-07-04 23:20] VITALS: BP 101/64; PULSE 69; TEMP 36.7; O2SAT 98
[2017-07-05 07:26] VITALS: BP 122/55; PULSE 66; TEMP 36.6; O2SAT 94
[2017-07-05] MEDS: METRONIDAZOLE 500 MG TAB PO SCH ×2 (08:52→14:21)
[2017-07-05] MEDS: CIPROFLOXACIN 500 MG TAB PO SCH (08:52)
[2017-07-05] MEDS: CITALOPRAM 20 MG TAB PO SCH (08:52)
[2017-07-05 10:02] LABS: BASO % 0.3 %; BASO ABS # 0.02 K/uL (0-0.2); COMPLETE YES; EOS % 1.1 %; HEMATOCRIT 38.7 % (37-47); IG% 0.1 %; LYMPH % 26.2 %; LYMPH ABS # 1.89 K/uL (1.2-3.4); MEAN CELL VOLUME 94.4 fL (80-100); MEAN CORPUSCULAR HEMOGLOBIN 32.2 pg (25-34); MEAN CORPUSCULAR HGB CONC 34.1 g/dl (32-36); MEAN PLATELET VOLUME 10.2 fL (7.4-10.4); MONO % 4.4 %; NEUT % 67.9 %; PLATELET COUNT 246 K/uL (130-400); WHITE BLOOD COUNT 7.22 K/uL (4.8-10.8)
[2017-07-05 10:35] LABS: BUN/CREATININE RATIO 12.7 (10-20); CALCIUM 8.8 mg/dl (8.5-10.1); CREATININE 0.7 mg/dl (0.60-1.20); MAGNESIUM 2.3 mg/dl (1.8-2.4); POTASSIUM 3.8 mmol/L (3.5-5.1)
[2017-07-05] MEDS ORDERED: CPR500 PO (10:44)
[2017-07-05] MEDS ORDERED: MTR500 PO (10:44)
--- NOTE | 2017-07-05 10:48 | Discharge Instructions ---
Discharge Instructions Date of Service Jul 05, 2017. Admission Reason for Admission: Acute Diverticulitis Discharge Discharge Diagnosis / Problem: Acute diverticulitis Discharge Goals Goal(s): Improve disease control, Diagnostic testing, Therapeutic intervention Activity Recommendations Activity Limitations: resume your previous activity Exercise/Sports Limitations: gradually increase as tolerated Shower/Bathe: no limitations Driving or Machine Use: no limitations . Instructions / Follow-Up Instructions / Follow-Up You were admitted with acute diverticulitis of the descending colon. You were improved and tolerating a low fiber diet as well as oral antibiotics. Please finish out the total 10 day course of antibiotics and follow up with your PCP within 1-2 weeks. Current Hospital Diet Patient's current hospital diet: Low Fiber Diet Discharge Diet Recommended Diet: Low Fiber Diet (x 2 weeks, then gradually advance back to a high fiber diet to prevent diverticulitis) Procedures Procedures Performed: CT abdomen/pelvis Pending Studies Studies pending at discharge: yes List of pending studies: final Blood cultures Laboratory Results Last 24 Hours Test 07/05/17 09:52 White Blood Count 7.22 K/uL Red Blood Count 4.10 M/uL Hemoglobin 13.2 g/dL Hematocrit 38.7 % Mean Corpuscular Volume 94.4 fL Mean Corpuscular Hemoglobin 32.2 pg Mean Corpuscular Hemoglobin Concent 34.1 g/dl Platelet Count 246 K/uL Mean Platelet Volume 10.2 fL Neutrophils (%) (Auto) 67.9 % Lymphocytes (%) (Auto) 26.2 % Monocytes (%) (Auto) 4.4 % Eosinophils (%) (Auto) 1.1 % Basophils (%) (Auto) 0.3 % Neutrophils # (Auto) 4.90 K/uL Lymphocytes # (Auto) 1.89 K/uL Monocytes # (Auto) 0.32 K/uL Eosinophils # (Auto) 0.08 K/uL Basophils # (Auto) 0.02 K/uL RDW Standard Deviation 43.7 fL RDW Coefficient of Variation 13.1 % Immature Granulocyte % (Auto) 0.1 % Immature Granulocyte # (Auto) 0.01 K/uL Sodium Level 140 mmol/L Potassium Level 3.8 mmol/L Chloride Level 106 mmol/L Carbon Dioxide Level 26 mmol/L Anion Gap 8.0 mmol/L Blood Urea Nitrogen 9 mg/dl Creatinine 0.70 mg/dl Est Creatinine Clear Calc Drug Dose 102.3 ml/min Estimated GFR () 109.1 Estimated GFR (Non- 94.2 BUN/Creatinine Ratio 12.7 Random Glucose 126 mg/dl Calcium Level 8.8 mg/dl Magnesium Level 2.3 mg/dl Total Bilirubin 0.6 mg/dl Direct Bilirubin 0.2 mg/dl Aspartate Amino Transf (AST/SGOT) 52 U/L Alanine Aminotransferase (ALT/SGPT) 77 U/L Alkaline Phosphatase 79 U/L Total Protein 7.4 gm/dl Albumin 3.4 gm/dl Medical Emergencies . Who to Call and When: Medical Emergencies: If at any time you feel your situation is an emergency, please call 911 immediately. . Non-Emergent Contact Non-Emergency issues call your: Primary Care Provider Call Non-Emergent contact if: you have a fever, your pain is not controlled, your pain is worsening, your pain is unusual for you, your pain is concerning you, you have any medication questions . . "Provider Documentation" section prepared by Modesta Mack. . VTE Core Measure Inpt VTE Proph given/why not?: SCD's
--- NOTE | 2017-07-05 10:57 | Discharge Summary ---
Discharge Summary Date of Service Jul 05, 2017. Discharge Summary Admission Date: Jul 04, 2017 at 00:55 Discharge Date: Jul 05, 2017 Discharge Disposition: Home Principal Diagnosis: Acute diverticulitis Problems/Secondary Diagnoses: Right-sided nephrolithiasis H/o Cholecystectomy. Major depressive disorder Obesity BMI 40.6 Fatty liver disease Elevated transaminases Immunizations: Have You Had Influenza Vaccine: Unknown History of Tetanus Vaccine?: Unknown History of Pneumococcal: Unknown History of Hepatitis B Vaccine: Unknown Procedures: CT abdomen/pelvis Consultations: None Medication Reconciliation New Medications: Ciprofloxacin (Ciprofloxacin HCl) 500 Mg Tab 500 MG PO BID for 9 Days, #18 TAB Metronidazole (Metronidazole) 500 Mg Tab 500 MG PO TID for 9 Days, #27 TAB Continued Medications: Biotin (Biotin) Unknown Strength Cap Unknown Dose PO DAILY Calcium Carbonate-Cholecalcife (Calcium+D3 600-800 mg-Unit) 1 Tab Tab 1 TAB PO QAM Citalopram Hydrobromide (Citalopram Hydrobromide) 20 Mg Tab 20 MG PO QAM Novelty 3 Fatty Acids-Novelty 6 Fa (Novelty 3-6-9 Complex) 1 Cap Cap 1 CAP PO QAM Probiotic Product (Probiotic) 1 Cap Cap 1 CAP PO QAM Discharge Exam Pt feeling very well, only very minimal pain in LLQ and has not required any pain meds since initial ones given upon admission. SHe is tolerating a low fiber diet. Feels a little nauseated with the po antibiotics but is tolerating food, no N/V. Is afebrile and WBC count trended back to normal. Review of Systems: Constitutional: No fever, No chills Eyes: No problem reported ENT: No problem reported Respiratory: No shortness of breath Cardiovascular: No chest pain Abdomen: + pain, + nausea, No vomiting, No diarrhea Musculoskeletal: No problem reported Genitourinary - Female: No problem reported Neurologic: No problem reported Psychiatric: No problem reported Endocrine: No problem reported Hematologic / Lymphatic: No problem reported Integumentary: No problem reported Physical Exam: General Appearance: WD/WN, no apparent distress, + obese Eyes: normal inspection, sclerae normal ENT: hearing grossly normal Neck: trachea midline Respiratory/Chest: lungs clear, normal breath sounds, no respiratory distress, no accessory muscle use Cardiovascular: regular rate, rhythm, no edema, no gallop, normal peripheral pulses, + systolic murmur (2/6 at LLSB) Abdomen / GI: normal bowel sounds, soft, no organomegaly, no pulsatile mass , + tenderness (very mild in LLQ without guarding or rebound, abdomen soft) Extremities: normal inspection, no calf tenderness, normal capillary refill , no pedal edema Neurologic/Psychiatric: alert, normal mood/affect, oriented x 3 Skin: normal color, warm/dry, no rash Hospital Course Pt is a 61F with a PMHx of depression and acute diverticulitis who p/w a 5 day history of left sided abdominal pain and nonbloody loose stools while eating. The pain got to the point where she thought she had diverticulitis again. She first had diverticulitis 4 years ago and was also hospitalized. 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 She reports fevers. She feels that the pain has improved since she came to the ER. SHe had a fever and leukocytosis on admission, and was found to have signs of acute mid-descending colon diverticulitis without microperforation or abscess on CT imaging. She was treated with IV Cipro and Flagyl, pain meds, IVFs, made NPO. Her diet was able to be advanced by the end of the first 24 hrs. She was switched to po antibiotics and was tolerating low fiber diet, leukocytosis resolved on hospital day #2. She was well enough for discharge to home and was discharged in good condition. SHe will remain on low fiber diet for 2 weeks and follow up with PCP within 1-2 weeks. Total Time Spent: Greater than 30 minutes This includes examination of the patient, discharge planning, medication reconciliation, and communication with other providers. Discharge Instructions Please refer to the electronic Patient Visit Report (Discharge Instructions) for additional information. Follow-Up PCP within 1 week Additional Copies To RV. Fraga MD
[2017-07-05 13:31] VITALS: BP 122/55; PULSE 66; TEMP 36.6; O2SAT 94
== END 2017-07-05 14:47 | disposition home or self-care (01) | DRG 392 ==
LOC: C.EDB 20:38 → C.MSN 07-04 00:55 → ENRESERV 07-04 01:16
PROVIDERS: ADMIT Family Medicine; ATTEND Family Medicine
DX: K57.92 Diverticulitis of intestine, part unspecified, without perforation or abscess without bleeding (principal); Z68.41 Body mass index [BMI] 40.0-44.9, adult; E66.9 Obesity, unspecified; F32.9 Major depressive disorder, single episode, unspecified; Z79.899 Other long term (current) drug therapy

== ENCOUNTER → 2017-08-02 | Outpatient (CLI) | payer OTHER ==
[~2017-08-02] MED LIST changes: +BIOT1CAP8 PO; +CPR500 PO; -HYDR-5688 PO; +MTR500 PO
[2017-08-02 12:31] LABS: BLOOD UREA NITROGEN 11 mg/dl (7-18); BUN/CREATININE RATIO 16.7 (10-20); CALCIUM 8.7 mg/dl (8.5-10.1); CARBON DIOXIDE 29 mmol/L (21-32); CHLORIDE 106 mmol/L (98-107); CREATININE 0.66 mg/dl (0.60-1.20); GLUCOSE 86 mg/dl (70-99); POTASSIUM 4.1 mmol/L (3.5-5.1); SODIUM 142 mmol/L (136-145)
== END | disposition home or self-care (01) ==
LOC: C.LAB1850 09:45
PROVIDERS: ATTEND Internal Medicine
DX: R73.01 Impaired fasting glucose (principal)

== ENCOUNTER → 2017-11-23 | Day surgery (SDC) | payer OTHER ==
[2017-11-08 09:00] VITALS: Ht 162.6 cm; Wt 109.1 kg
[~2017-11-23] VITALS: Ht 162.6 cm; Wt 109.1 kg
[~2017-11-23] MED LIST changes: +ASCO500T87 PO; +ATROPINE SULFATE 0.1 MG/ML 5ML SYR IV PRN; +BETAMETH SOD PHOS/ACETATE IA 6 MG/ML ONE; +BUPIVACAINE 0.25% 2.5MG/ML PF 10 ML VIAL ONE; +BUPIVACAINE 0.5 % 5 MG/1 ML PF 10ML VIAL ONE; -CALC-461 PO; +CALC-485 PO; +CEFAZOLIN 2000MG IV PUSH 15 ML IV SCH; -CPR500 PO; +EpHEDrine SULFATE INJ 50 MG/ML AMP IV PRN; +FENTANYL CITRATE INJ 50 MCG/1 ML 2 ML VIAL IV PRN; +FENTANYL CITRATE INJ 50 MCG/1 ML 2 ML VIAL ONE; +FLUMAZENIL 0.1 MG/1 ML 10 ML VIAL IV PRN; +HYDROmorphone INJ 2 MG/ML SYR/VIAL IV PRN; +LABETALOL HCL IV 5 MG/ML 20ML IV PRN; +LACTATED RINGER'S 1000ML 1,000 ML IV SCH; +LIDOCAINE HCL 1% 20 ML VIAL ONE; +LIDOCAINE HCL 2% 2 ML VIAL (20MG/ML) ONE; +MEPERIDINE HCL 25 MG/ML CARP IV PRN; +MIDAZOLAM HCL 1 MG/ML 2ML VIAL ONE; -MTR500 PO; +NALOXONE HCL 0.4 MG/1 ML VIAL/CARP IV PRN; +ONDANSETRON INJ 2 MG/ML 2 ML VIAL IV PRN; +OXYCODONE/ACETAMINOPHEN 5-325 TAB PO PRN; +PHENYLEPHRINE 100MCG/ML 5ML SYR IV PRN; +PROPOFOL IV EMULSION 10 MG/ML 20 ML VIAL IV ONE; +SODIUM CHLORIDE 0.9% 1000ML 1,000 ML IV SCH; +TRAM-10 PO
--- NOTE | 2017-11-23 07:19 | [facility] Post Operative Brief Note ---
Immediate Operative Summary Operative Date Nov 23, 2017. 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 Powell Thumb Sewer Surgeon(s) Marcus Mendez PA-C Estimated Blood Loss None Findings Consistent with Post-Op Diagnosis Specimens None Drains None Anesthesia Type MAC Complication(s) none Disposition Disposition:
[2017-11-23 07:21] VITALS: TEMP 36.6
--- NOTE | 2017-11-23 07:23 | Discharge Instructions-SurgCtr ---
Discharge Instructions Date of Service Nov 23, 2017. Visit Reason for Visit: Right And Left Snapping Thumb Syndrome Discharge Discharge Diagnosis / Problem: SAME ABOVE Discharge Goals Goal(s): Decrease discomfort, Improve function Activity Recommendations Activity Limitations: as noted below Lifting Limitations: gradually increase as tolerated Exercise/Sports Limitations: until after follow-up appointment Shower/Bathe: tomorrow Anesthesia . Post Anesthesia Instructions: If you have had General Anesthesia or IV Sedation: * Do not drive today. * Resume driving when surgeon permits. * Do not make important decisions or sign legal documents today. * Call surgeon for: 1. Temperature elevations greater than 101 degrees F. 2. Uncontrollable pain. 3. Excessive bleeding. 4. Persistent nausea and vomiting. 5. Medication intolerance (nausea, vomiting or rash). * For nausea and vomiting use only clear liquids such as: tea, soda, bouillon until nausea subsides, then gradually increase diet as tolerated. * If you have any concerns or questions, call your surgeon's office. If physician is unavailable and it is an emergency, call 911 or go to the nearest emergency room. . Instructions / Follow-Up Instructions / Follow-Up MEDICATIONS: * Resume previous medications unless instructed otherwise by your surgeon. * Always take pain medication on a full stomach or with food to avoid upset stomach. * Do not drink alcohol or drive while taking narcotics. * Ibuprofen or Tylenol may be taken if narcotic not needed. SPECIAL CARE INSTRUCTIONS: __ None _X_ Keep extremity elevated and iced x 48 hours; apply ice 20-30 minutes 8-10 times/day. May remove at night. __ Sling __24 hrs/day __ Remove at night __ Shoulder Immobilizer __ 24 hrs/day __ Remove at night _X_ Dressing __ Maintain until seen in office, may shower with plastic over site _X_ Remove dressings in 24-48 hours and then may shower _X_ Cover incisions with band-aids after showering __ Do not remove steri-strips Call physician if chills or temperature rises above 102 degrees or pain unrelieved by prescribed pain medications at . . Diet Recommendations Home Diet: resume previous diet Procedures Procedures Performed: Right Trigger Thumb Release; Left Trigger Thumb Injection Pending Studies Studies pending at discharge: no Medical Emergencies . Who to Call and When: Medical Emergencies: If at any time you feel your situation is an emergency, please call 911 immediately. . Non-Emergent Contact Non-Emergency issues call your: Primary Care Provider . . "Provider Documentation" section prepared by Luke Mendez. .
--- NOTE | 2017-11-23 07:38 | Anesthesiology Progress Note ---
Anesthesia Post Op Note Date & Time Nov 23, 2017 at 07:38 Vital Signs Pain Intensity: 0 Vital Signs Past 12 Hours Date Time Temp Pulse Resp B/P (MAP) Pulse Ox O2 Delivery O2 Flow Rate FiO2 11/23/17 07:21 36.6 65 16 117/71 (86) 97 Room Air 11/23/17 06:30 36.7 70 18 147/88 (107) 95 Room Air Notes Mental Status: alert / awake / arousable, participated in evaluation Pt Amnestic to Procedure: Yes Nausea / Vomiting: adequately controlled Pain: adequately controlled Airway Patency, RR, SpO2: stable & adequate BP & HR: stable & adequate Hydration State: stable & adequate Anesthetic Complications: no major complications apparent
[2017-11-23 07:43] VITALS: BP 142/77; PULSE 71; O2SAT 94
--- NOTE | 2017-11-23 13:27 | OPERATIVE REPORT ---
DATE OF OPERATION: 11/23/2017 PREOPERATIVE DIAGNOSIS: Right and left trigger thumb. POSTOPERATIVE DIAGNOSIS: Same. PROCEDURE: 1. Release of A1 shani, right thumb. 2. Inject left trigger thumb with cortisone. SURGEON: Osman Powell MD RACK PULLER: Luke Mendez PA-C ANESTHESIOLOGIST: Dr. Leblanc. ANESTHESIA: Local with IV sedation. DRAINS: None. COMPLICATIONS: None. CONDITION: The patient tolerated the procedure well and returned to the recovery room in apparent satisfactory condition. INDICATIONS FOR SURGERY: Elise is a 62-year-old female well known to me having carpal tunnel surgery, presents back down with trigger thumbs, both hands, right more significant than left. Procedure, expected outcomes and side effects were all explained in detail. DESCRIPTION OF THE PROCEDURE: The patient was taken to the OR at which time she was placed supine on the operating table, given IV sedation. The left hand was cleaned and while she was sedated, cortisone shot was done with 1 mL of Celestone and 0.25 mL of Marcaine. Bandage was placed over that area. The right thumb then was prepped and draped in usual sterile fashion for surgery. We went ahead and exsanguinated the forearm tourniquet. We went ahead and put a forearm tourniquet up to 250 mmHg. We made a transverse incision over the A1 shani using loupe magnification. We dissected down, identified the A1 shani and divided it with an 11 blade and tenotomy scissors. The thumb was taken through a range of motion and no longer triggering of the thumb. We then irrigated, closed with interrupted 4-0 nylon sutures. Marcaine without epinephrine was placed in skin edges, placed sterile dressing of Xeroform, 2 x 2 gauze and a Coban and returned to recovery room in apparent satisfactory condition. I attest to the content of the Intraoperative Record and any orders documented therein. Any exceptions are noted below. MTDD
== END | disposition home or self-care (01) ==
LOC: X.SURG 06:22
PROVIDERS: ATTEND Orthopaedic Surgery
DX: M65.311 Trigger thumb, right thumb (principal); M65.312 Trigger thumb, left thumb; M19.90 Unspecified osteoarthritis, unspecified site; E66.9 Obesity, unspecified

== ENCOUNTER 2017-11-28 18:44 | Emergency (ER) | payer OTHER ==
[~2017-11-28] VITALS: Ht 162.6 cm; Wt 109.8 kg
[~2017-11-28 18:44] MED LIST changes: -ATROPINE SULFATE 0.1 MG/ML 5ML SYR IV PRN; -BETAMETH SOD PHOS/ACETATE IA 6 MG/ML ONE; -BUPIVACAINE 0.25% 2.5MG/ML PF 10 ML VIAL ONE; -BUPIVACAINE 0.5 % 5 MG/1 ML PF 10ML VIAL ONE; -CEFAZOLIN 2000MG IV PUSH 15 ML IV SCH; -EpHEDrine SULFATE INJ 50 MG/ML AMP IV PRN; -FENTANYL CITRATE INJ 50 MCG/1 ML 2 ML VIAL IV PRN; -FENTANYL CITRATE INJ 50 MCG/1 ML 2 ML VIAL ONE; -FLUMAZENIL 0.1 MG/1 ML 10 ML VIAL IV PRN; -HYDROmorphone INJ 2 MG/ML SYR/VIAL IV PRN; -LABETALOL HCL IV 5 MG/ML 20ML IV PRN; -LACTATED RINGER'S 1000ML 1,000 ML IV SCH; -LIDOCAINE HCL 1% 20 ML VIAL ONE; -LIDOCAINE HCL 2% 2 ML VIAL (20MG/ML) ONE; -MEPERIDINE HCL 25 MG/ML CARP IV PRN; -MIDAZOLAM HCL 1 MG/ML 2ML VIAL ONE; -NALOXONE HCL 0.4 MG/1 ML VIAL/CARP IV PRN; -ONDANSETRON INJ 2 MG/ML 2 ML VIAL IV PRN; -OXYCODONE/ACETAMINOPHEN 5-325 TAB PO PRN; -PHENYLEPHRINE 100MCG/ML 5ML SYR IV PRN; -PROPOFOL IV EMULSION 10 MG/ML 20 ML VIAL IV ONE; -SODIUM CHLORIDE 0.9% 1000ML 1,000 ML IV SCH
[2017-11-28 18:47] VITALS: TEMP 37.4; Ht 162.6 cm; Wt 109.8 kg
[2017-11-28] MEDS ORDERED: IBUPROFEN 600 MG TAB PO STA (19:21)
--- NOTE | 2017-11-28 19:23 | EMERGENCY ROOM VISIT NOTE ---
History Report prepared by Pro: Deondre Schuler Under the Supervision of: Dr. Marija Alas D.O. First contact with patient: 19:04 Chief Complaint: KNEEPAIN Stated Complaint: PAIN IN RT KNEE History of Present Illness The patient is a 62 year old female who presents to the Emergency Room with complaints of right knee pain that began 1.5 weeks ago. She rates her pain a 10/ 10 in severity. She has a past medical history of a cholecystectomy and a hysterectomy. 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 She uses knee pads for when she does this and is normally sore for a couple of days afterward, but eventually it goes away. This time, her pain persisted longer than it usually does. Her pain is exacerbated with movement. She has tried heat and ice without any relief. She has been taking Tylenol for her pain. She denies any injury, trauma, or past surgeries to the knee. She notes some positional right lower leg numbness that is present when she is resting, but goes away after she stands up. She denies any fevers, chills , cough, chest pain, shortness of breath, other extremity pain, or hip pain. She denies any recent travels. She is not on any blood thinners. She notes that she intermittently feels a clicking in her knee when she moves it. Source of History: patient Onset: 1.5 weeks ago Position: knee (right) Symptom Intensity: 10/10 Quality: ache Timing: constant Modifying Factors (Worsening): movement Associated Symptoms: No fevers, No chills, No cough, No chest pain, No SOB Note: She denies any other extremity pain or hip pain. Review of Systems See HPI for pertinent positives & negatives. A total of 6 systems reviewed and were otherwise negative. Past Medical & Surgical Surgical Problems: (1) S/P cholecystectomy (2) S/P hysterectomy Family History FHx: cancer Social History Smoking Status: Never Smoker Alcohol Use: none Drug Use: none Marital Status: Housing Status: lives with significant other Current/Historical Medications Scheduled Ascorbic Acid (Vitamin C Tr/Maral Hips), 1 TAB PO DAILY AT NOON Biotin (Biotin), 1 CAP PO QAM Calcium Carbonate-Cholecalcife (Calcium 500 +D3 500-600 mg-Unit), 1 TAB PO QAM Citalopram Hydrobromide (Citalopram Hydrobromide), 20 MG PO QAM [place] 3 Fatty Acids-[place] 6 Fa ([place] 3-6-9 Complex), 1 CAP PO QAM Probiotic Product (Probiotic), 1 CAP PO QAM Scheduled PRN Acetaminophen (Tylenol), 1,000 MG PO Q6 PRN for Pain Hydrocodone/Acetaminophen 5MG/325MG ([place] 5MG/325MG), 1-2 TABS PO Q8 PRN for Pain Allergies Coded Allergies: No Known Allergies (Unverified , 11/23/17) Physical Exam Vital Signs Date Time Temp Pulse Resp B/P (MAP) Pulse Ox O2 Delivery O2 Flow Rate FiO2 11/28/17 21:22 78 16 152/70 98 Room Air 11/28/17 18:47 37.4 90 16 149/78 97 Room Air Physical Exam GENERAL: alert, well appearing, well nourished, no distress, non-toxic SKIN: no rashes and no bruising UPPER EXTREMITIES: upper extremities are grossly normal. LOWER EXTREMITIES: No pitting edema. Decreased ROM to the right knee secondary to pain. Worse active > passive. No joint effusions. No contusions. No ligamentous laxity. Normal pulses. Normal sensory. Calves nontender to palpation bilaterally. NEURO EXAM: Normal sensorium, cranial nerves II-XII grossly intact, normal speech, no gross weakness of arms, no gross weakness of legs. Medical Decision & Procedures ER Provider Diagnostic Interpretation: Radiology results have been interpreted by the radiologist and reviewed by me. RIGHT KNEE 3 VIEWS HISTORY: Right knee pain COMPARISON: None. FINDINGS: There is no fracture or dislocation. Soft tissues are unremarkable. No significant knee effusion. Mild cartilage space narrowing and marginal osteophytes at the medial and lateral compartments of the knee. There is also severe cartilage space narrowing within the lateral patellofemoral compartment. IMPRESSION: No fractures. Tricompartmental osteoarthritis as described above. Electronically signed by: Lb Mueller M.D. 11/28/2017 8:20 PM Dictated Date/Time: 11/28/2017 8:18 PM RIGHT LOWER EXTREMITY VENOUS DOPPLER HISTORY: Right leg pain COMPARISON STUDY: None. FINDINGS: There is normal compressibility, flow, and augmentation within the right lower extremity deep venous system. A 3.7 x 2.8 x 1.4 cm popliteal cyst. IMPRESSION: No DVT within the right lower extremity Electronically signed by: Lb Mueller M.D. 11/28/2017 8:55 PM Dictated Date/Time: 11/28/2017 8:55 PM Medications Administered Medications (Trade) Dose Ordered Sig/Emmett Route Start Time Stop Time Status Last Admin Dose Admin Ibuprofen (Motrin Tab) 600 mg NOW STAT PO 11/28/17 19:21 11/28/17 19:22 DC 11/28/17 19:37 600 MG Acetaminophen/ Hydrocodone Bitart ([place] 5/325 Tab) 1 tab NOW STAT PO 11/28/17 21:07 11/28/17 21:09 DC 11/28/17 21:15 1 TAB ED Course 1903: The patient was evaluated in room D7. A complete history and physical exam was performed. 1920: Ordered Motrin Tab 600 mg PO 2106: Ordered Hydrocodone Bitart/Acetaminophen 1 tab PO 2114: Upon reevaluation, the patient is feeling better. I discussed the findings and the treatment plan with the patient. She verbalizes agreement and understanding. She was discharged home. Medical Decision Differential diagnosis: Etiologies such as fracture, dislocation, neurovascular compromise, compartment syndrome, soft tissue injury, DVT, as well as others were entertained. Discussed with patient close follow-up with orthopedics and possible need for additional imaging and evaluation. Doubt DVT, no evidence of septic arthritis, no evidence of arterial insufficiency, no evidence of fracture or dislocation, no evidence of cellulitis. Patient with arthritis noted. Discussed with patient pain medications, possible ADRs, symptoms watch and return for, she verbalized understanding was agreeable with plan. Medication Reconcilliation Current Medication List: was personally reviewed by me Blood Pressure Screening Patient's blood pressure: Elevated blood pressure Blood pressure disposition: Elevated BP felt to be situational Impression Primary Impression: Knee pain Scribe Attestation The scribe's documentation has been prepared under my direction and personally reviewed by me in its entirety. I confirm that the note above accurately reflects all work, treatment, procedures, and medical decision making performed by me. Departure Information Dispostion Home / Self-Care Prescriptions Hydrocodone/Acetaminophen 5MG/325MG ([place] 5MG/325MG) Tab 1-2 TABS PO Q8 Y for Pain, #10 TAB Prov: Marija Alas, DO 11/28/17 Referrals RV. Fraga MD Forms HOME CARE DOCUMENTATION FORM, IMPORTANT VISIT INFORMATION Patient Instructions [facility] Additional Instructions Please follow up with your family doctor in your orthopedic surgeon regarding her knee pain. They may want to pursue additional evaluation and imaging as an outpatient. You may use Tylenol and ibuprofen as needed for pain, particular if you need to be awake or driving during the day. Please do not take the stronger medication and drive or take additional Tylenol. Please monitor for constipation as this is a common side effect of the stronger pain medication. Please make sure you're drinking plenty of water. Please elevate your leg when at rest. Please consider using your supportive knee brace and crutches during ambulation. If you have any worsening pain, increased swelling, develop redness or rash over the knee, fevers or chills, any additional joint pain, you' ve any other new concerns, please return the emergency room. Problem Qualifiers Primary Impression: Knee pain Chronicity: acute Laterality: right Qualified Codes: M25.561 - Pain in right knee
[2017-11-28] MEDS ORDERED: ACET-1256 PO (19:36)
--- NOTE | 2017-11-28 20:21 | DIAGNOSTIC IMAGING REPORT ---
RIGHT KNEE 3 VIEWS HISTORY: Right knee pain COMPARISON: None. FINDINGS: There is no fracture or dislocation. Soft tissues are unremarkable. No significant knee effusion. Mild cartilage space narrowing and marginal osteophytes at the medial and lateral compartments of the knee. There is also severe cartilage space narrowing within the lateral patellofemoral compartment. IMPRESSION: No fractures. Tricompartmental osteoarthritis as described above. Electronically signed by: Lb Mueller M.D. 11/28/2017 8:20 PM Dictated Date/Time: 11/28/2017 8:18 PM
--- NOTE | 2017-11-28 20:56 | DIAGNOSTIC IMAGING REPORT ---
RIGHT LOWER EXTREMITY VENOUS DOPPLER HISTORY: Right leg pain COMPARISON STUDY: None. FINDINGS: There is normal compressibility, flow, and augmentation within the right lower extremity deep venous system. A 3.7 x 2.8 x 1.4 cm popliteal cyst. IMPRESSION: No DVT within the right lower extremity Electronically signed by: Lb Mueller M.D. 11/28/2017 8:55 PM Dictated Date/Time: 11/28/2017 8:55 PM
[2017-11-28] MEDS ORDERED: HYDROCODONE/ACETAMIN 5/325MG TAB PO STA (21:07)
[2017-11-28] MEDS ORDERED: HYDR-5688 PO (21:12)
[2017-11-28 21:22] VITALS: BP 152/70; PULSE 78; O2SAT 98
== END 2017-11-28 21:31 | disposition home or self-care (01) ==
LOC: C.EDB 18:45 → C.EDD 21:31
DX: M25.561 Pain in right knee (principal); M17.11 Unilateral primary osteoarthritis, right knee; Z90.710 Acquired absence of both cervix and uterus; Z90.49 Acquired absence of other specified parts of digestive tract

== ENCOUNTER 2023-11-27 21:43 | Inpatient (IN) ==
[2023-11-27] MEDS: ONDANSETRON INJ 2 MG/ML 2 ML VIAL IV STA (21:55)
[2023-11-27] MEDS: SODIUM CHLORIDE 0.9% 500 ML IV STA (21:55)
[2023-11-27] MEDS: KETOROLAC TROMETHAMINE 15 MG/ML VIAL IV STA (21:55)
--- NOTE | 2023-11-27 21:58 | Emergency Department Note ---
History of Present Illness General Chief complaint: Kidney Stone Stated complaint: KIDNEY STONE - NAUSEA AND PAIN Time Seen by Provider: 11/27/23 21:49 History of Present Illness Maximum Pain Intensity: 10 This 68-year-old female is seen this morning presents ER for worsening kidney stone pain. Patient complains of nausea and severe pain. Home meds are not helping. Patient denies fevers, cough, congestion, flulike illness. No urologist. Home Medications Medication Instructions Recorded Confirmed Type ascorbic acid (vitamin C) 500 mg 500 mg PO QAM 03/21/19 11/27/23 History tablet biotin 2,500 mcg capsule 2,500 mcg PO QAM 03/21/19 11/27/23 History calcium carbonate 600 mg-vitamin 1 tab PO QAM 03/23/20 11/27/23 History D3 10 mcg (400 unit) tablet (Calcium 600 + D(3)) lactobacillus combination no.4 3 3 mmu cells PO QAM 03/23/20 11/27/23 History billion cell capsule (Probiotic) omega-3 fatty acids 1,000 mg 1,000 mg PO QAM 03/23/20 11/27/23 History capsule psyllium husk 3.4 gram/5.4 gram 1 tbsp PO DAILY PRN Constipation 07/07/21 11/27/23 History oral powder (Metamucil) acetaminophen 500 mg capsule 1,000 mg PO Q6H PRN Pain 12/12/22 11/27/23 History sertraline 50 mg tablet 50 mg PO HS #90 tabs 09/30/23 11/27/23 Rx celecoxib 200 mg capsule 200 mg PO BID 11/27/23 11/27/23 History hydrocodone 5 mg-acetaminophen 325 1 tab PO Q6H PRN pain #20 tabs 11/27/23 Rx mg tablet pantoprazole 40 mg tablet,delayed 40 mg PO QAM 11/27/23 11/27/23 History release tamsulosin 0.4 mg capsule (Flomax) 0.4 mg PO DAILY #7 caps 11/27/23 Rx Allergies Allergy/AdvReac Type Severity Reaction Status Date / Time No Known Allergies Allergy Verified 11/27/23 08:16 Past Med/Surg History Medical History Nasal mucosa dry Diverticulitis of rectosigmoid Suspected 2019 novel coronavirus infection END 11/2020-SYMPTOMS LOSS TASTE AND SMELL-DID NOT GET TESTED/SPOUSE HAS SAME SYMPTOMS AND HE HAD POSITIVE COVU=ID TEST AT THE SAME TIME-PT STILL HAS SOME IMPAIRED TASTE AND SMELL Kidney stones Incidental finding on imaging Cancer SKIN CANCER-NOT MELANOMA Removed Fatty liver Morbid obesity with BMI of 40.0-44.9, adult Cardiac murmur I-II/ murmur noted on 11/27/21 PAT exam. ECHO from 2018 showed no significant valvular abnormalities Joint pain ongoing in lt hip Left lower quadrant abdominal pain occurs with her diverticulitis Acute diverticulitis 6th episode - 05/2023 Obesity, morbid, BMI 40.0-49.9 Constipation Anxiety Surgical History History of right knee joint replacement Status post right knee replacement History of left knee replacement S/P trigger finger release History of tonsillectomy History of carpal tunnel release of both wrists History of total abdominal hysterectomy and bilateral salpingo-oophorectomy History of colonoscopy 07/2021 History of oral surgery S/P cholecystectomy Family History Mother Cancer, colon Colorectal cancer Father Prostate cancer Arthritis Malignant melanoma Cancer Sister Arthritis Grandmother (Paternal) Family history of diabetes mellitus Other No family history of adverse response to anesthesia Denies family history of Ovarian cancer Myocardial infarction Breast cancer Social History Smoking Status: Never smoker Second Hand Exposure: No; Do You Dip or Chew Tobacco: No; Hx Alcohol Use: Yes Alcohol type: wine Hx Substance Use: No Preferred Language: Georgian Communication Ability: Effective Visual Impairment: No Limitations Hearing Ability: Normal 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 Beliefs That Will Affect Care: None marital status: Current Living Situation: Spouse current occupational status: retired Other Information That Helps Us Care for You: No Feels Safe at Home: Yes Safety Concerns: Feels Safe At This Time Childhood Exposure to Second-Hand Smoke: No Dental Care, Regularly: Yes Physical Activity Frequency: Does not Exercise Seatbelt Use: always Sunscreen Use: Yes Assistive Devices: Cane and Walker Assistive Devices Comment: walker/cane as needed for hip pain Review of Systems A total of 10 systems reviewed and were otherwise negative Physical Exam Vital Signs Vital Signs - 24 hr 11/27/23 21:45 Temperature 36.3 C L Temperature Source Temporal Artery Scan Pulse Rate 70 Respiratory Rate 16 Respiratory Effort / Characteristics Non-Labored Spontaneous Respiratory Depth Normal Respiratory Pattern Regular Blood Pressure 164/97 H Blood Pressure Mean 119 Blood Pressure Position Sitting Pulse Oximetry 91 Oxygen Delivery Method Room Air Sepsis Recent Fever Within 48 Hours No Sepsis New/Unexplained Change in Mental Status No Sepsis Action Taken by Nursing No Action Required VITALS: Vitals are noted on the nurse's note and reviewed by myself. Vital signs stable. GENERAL: Pleasant female who appears in pain, in no acute distress, nondiaphoretic, well-developed well-nourished. SKIN: Capillary reflex less than 2 seconds. HEENT: Normocephalic. PERRLA. EOMI. Nares patent. Mucous membranes moist. Neck is supple without nuchal rigidity. HEART: Regular rate and rhythm LUNGS: Clear to auscultation bilaterally without wheezes, rales or rhonchi. No retractions or accessory muscle use. ABDOMEN: Positive bowel sounds x 4. Normal tympanic percussion. Soft, nontender, without masses or organomegaly. Abraham sign negative. No guarding or rebound tenderness. no CVA tenderness MUSCULOSKELETAL: No gross musculoskeletal defects. NEURO: Patient was alert and oriented to person place and time. No focal neurological deficits. Course Administered Medications Sodium Chloride (Nss) 1,000 mls @ 100 mls/hr IV .Q10H NUIRA Stop: 11/28/23 20:16 Last Admin: 11/28/23 01:45 Dose: 100 mls/hr Documented By: AARTI Discontinued Medications Sodium Chloride (Nss) 500 mls @ 999 mls/hr IV .Q31M STA Stop: 11/27/23 22:18 Last Infusion: 11/27/23 22:26 Dose: Infused Documented By: Admin: 11/27/23 21:55 Dose: 999 mls/hr Documented By: GRACE Ketorolac Tromethamine (Ketorolac Tromethamine 15 Mg/Ml Vial) 15 mg IV ONE STA Stop: 11/27/23 21:49 Last Admin: 11/27/23 21:55 Dose: 15 mg Documented By: GRACE Morphine Sulfate (Morphine Sulfate 4 Mg/Ml 1 Ml Carp\Vial) 4 mg IV NOW STA Stop: 11/27/23 22:00 Last Admin: 11/27/23 22:19 Dose: 4 mg Documented By: ALAYNA Ondansetron HCl (Ondansetron Inj 2 Mg/Ml 2 Ml Vial) 4 mg IV NOW STA Stop: 11/27/23 21:49 Last Admin: 11/27/23 21:55 Dose: 4 mg Documented By: GRACE Tamsulosin HCl (Tamsulosin Hcl 0.4 Mg Cap) 0.4 mg PO NOW ONE Stop: 11/28/23 00:18 Last Admin: 11/28/23 01:44 Dose: 0.4 mg Documented By: AARTI Medical Decision Making Medical Records Attestation: I reviewed the patient's medical records. Home Medications Current Medication List: was personally reviewed by me Laboratory Data Attestation: I reviewed the patient's lab results. Imaging Data Attestation: I personally reviewed and interpreted this imaging study as follows: MDM Narrative Prior records/ancillary studies reviewed. Triage Nursing notes reviewed. Additional history obtained from the family. The patient's history was concerning for flank pain. Differential diagnosis: Etiologies such as renal colic, appendicitis, diverticulitis, mesenteric ischemia, aortic pathology, infections, inflammatory bowel disease, PUD, biliary pathology, UTI, as well as others were entertained. Physical examination findings: As above. ER treatment provided: Morphine, Zofran and Toradol were ordered On reassessment the patient felt better. Diagnostic interpretation by me: The labs Independently Interpreted by myself revealed no worrisome leukocytosis and stable creatinine from earlier visit. Urinalysis revealed There was no sign of UTI. Imaging studies: CT from this morning was reviewed Patient: ZAINAB LOMBARDI Admit Date: 11/27/23 MR#: [id number] Address1: [address] Acct ID:[id number] Address2: Date: 1955 [facility] Zip: [place] [address] Age: 68 Location: ED Sex: F Room/Bed: Att Phy: Diagnosis: VOMITING,NAUSEA,FLANK PAIN Cynthia Phy: RV. Fraga MD Service Date: 11/27/23 [facility] Phy: Interpreting Phy: Chuckie DuqueAdmbrent Phy: Ordering Phy: Jenny, Alyssa B.,M.D. cc: ~ ABDOMEN AND PELVIS CT WITHOUT CONTRAST CT DOSE: 1380.75 mGy.cm HISTORY: Acute right-sided flank pain R flank pain, kidney stone TECHNIQUE: Multiaxial CT images of the abdomen and pelvis were performed without contrast. A dose lowering technique was utilized adhering to the principles of ALARA. COMPARISON STUDY: 05/19/2023 FINDINGS: Clear lung bases. No free air. The unenhanced spleen, pancreas and adrenal glands are unremarkable. Cholecystectomy. Equivocal marginal nodularity of the liver redemonstrated. Cortical thinning of the kidneys with mild nonspecific bilateral perinephric stranding. There are 2 nonobstructing calculi in the interpolar right kidney measuring up to 4 mm. Mild right-sided hydroureteronephrosis secondary to an obstructing 6 x 4 x 9 mm calculus of the proximal right ureter just distal to the ureteropelvic junction at the level of L4. Probable cyst of the inferior pole right kidney, 1.7 cm. Decompressed urinary bladder. Hysterectomy with pelvic floor relaxation. Atherosclerosis of the aorta. No bowel obstruction or bowel wall thickening. Colonic diverticulosis without acute diverticulitis. Normal appendix. No acute fracture. IMPRESSION: 1. Mild right-sided hydronephrosis secondary to an obstructing proximal ureteral calculus measuring 9 mm. 2. Right nephrolithiasis. 3. Colonic diverticulosis. 4. Additional findings as above. ACT 112: Negative or not required by law. The above report was generated using voice recognition software. It may contain grammatical, syntax or spelling errors. Electronically signed by: Chuckie Duque M.D. 11/27/2023 7:37 AM Dictated: 11/27/23 0731 Consultation: A consultation was placed with the hospitalist. The case was discussed and diagnostics were reviewed. The patient was evaluated in the ER for further treatment. It appears that the patient has isolated renal colic from a right sided stone. Patient was still in severe amount of pain. She tried to go home and did not tolerate this. Medicine was consulted and case was discussed. She will be a dmitted to the medical service for further evaluation and workup. By the evaluation outlined above emergent etiologies such as appendicitis, diverticulitis, mesenteric ischemia, aortic pathology, infections, inflammatory bowel disease, PUD, biliary pathology, UTI, as well as others were deemed relatively unlikely. The pt informed about the findings as listed above. All questions were answered and pleased with the treatment. The chart was completed utilizing [employer] Speech voice recognition software. Grammatical errors, random word insertions, pronoun errors, and incomplete sentences are an occassional consequence of this system due to software limitations, ambient noise, and hardware issues. Any formal questions or concerns about the content, text, or information contained within the body of this dictation should be directly addressed to the physician assistant health educator for clarification. Impression & Plan Renal colic on right side, Right ureteral stone Discharge Plan Visit Data Chief Complaint: Kidney Stone Stated Complaint: KIDNEY STONE - NAUSEA AND PAIN ED Provider: Mark Escamilla ED Midlevel Provider: Piedad Lino Discharge Problem: Renal colic on right side, Right ureteral stone Patient Disposition: Admitted As Inpatient Condition: Good Discharge Instructions Interventions: ED Discharge Assessment Last Done: 11/27/23 23:21
[2023-11-27] MEDS: MoRPHine SULFATE 4 MG/ML 1 ML CARP\\VIAL IV STA (22:19)
--- NOTE | 2023-11-27 22:49 | History & Physical Report ---
Date of Service November 27, 2023 Assessment & Plan (1) Right ureteral stone: Plan: patient with 9 mm obstructing right renal stone. Pain currently well- controlled. Per labs earlier today, renal function intact, no leukocytosis, no bacteria present on UA Admit to medical Repeat labs and urinalysis Keep n.p.o. Pain control with morphine as needed, nausea control with Zofran as needed Flomax 0.4 mg p.o. daily Urology consultation appreciated (2) Anxiety: Plan: Chronic. Stable. Continue sertraline History of Present Illness Chief Complaint: Right flank pain Primary Care Provider: Edgar Talavera MD Elise Negro is a 68-year-old female with history of renal stones presenting with right flank pain, nausea and 3 episodes of nonbloody/nonbilious vomiting which is all been ongoing throughout the day. She was seen in the ER earlier today with similar complaints and had a CT scan obtained which confirmed presence of a 9 mm stone. She was ultimately discharged home with medications She returns with ongoing symptoms In the ER she is afebrile, hemodynamically stable ER course: Labs not obtained Toradol 15 mg Zofran 4 mg Normal saline Allergies Allergy/AdvReac Type Severity Reaction Status Date / Time No Known Allergies Allergy Verified 11/27/23 08:16 Home Medications Medication Instructions Recorded Confirmed Type ascorbic acid (vitamin C) 500 mg 500 mg PO QAM 03/21/19 11/27/23 History tablet biotin 2,500 mcg capsule 2,500 mcg PO QAM 03/21/19 11/27/23 History calcium carbonate 600 mg-vitamin 1 tab PO QAM 03/23/20 11/27/23 History D3 10 mcg (400 unit) tablet (Calcium 600 + D(3)) lactobacillus combination no.4 3 3 mmu cells PO QAM 03/23/20 11/27/23 History billion cell capsule (Probiotic) omega-3 fatty acids 1,000 mg 1,000 mg PO QAM 03/23/20 11/27/23 History capsule psyllium husk 3.4 gram/5.4 gram 1 tbsp PO DAILY PRN Constipation 07/07/21 11/27/23 History oral powder (Metamucil) acetaminophen 500 mg capsule 1,000 mg PO Q6H PRN Pain 12/12/22 11/27/23 History sertraline 50 mg tablet 50 mg PO HS #90 tabs 09/30/23 11/27/23 Rx celecoxib 200 mg capsule 200 mg PO BID 11/27/23 11/27/23 History hydrocodone 5 mg-acetaminophen 325 1 tab PO Q6H PRN pain #20 tabs 11/27/23 Rx mg tablet pantoprazole 40 mg tablet,delayed 40 mg PO QAM 11/27/23 11/27/23 History release tamsulosin 0.4 mg capsule (Flomax) 0.4 mg PO DAILY #7 caps 11/27/23 Rx Past Med/Surg History Medical History Nasal mucosa dry Diverticulitis of rectosigmoid Suspected 2018 novel coronavirus infection END 11/2020-SYMPTOMS LOSS TASTE AND SMELL-DID NOT GET TESTED/SPOUSE HAS SAME SYMPTOMS AND HE HAD POSITIVE COVU=ID TEST AT THE SAME TIME-PT STILL HAS SOME IMPAIRED TASTE AND SMELL Kidney stones Incidental finding on imaging Cancer SKIN CANCER-NOT MELANOMA Removed Fatty liver Morbid obesity with BMI of 40.0-44.9, adult Cardiac murmur I-II/ murmur noted on 11/27/21 PAT exam. ECHO from 2018 showed no significant valvular abnormalities Joint pain ongoing in lt hip Left lower quadrant abdominal pain occurs with her diverticulitis Acute diverticulitis 6th episode - 05/2023 Obesity, morbid, BMI 40.0-49.9 Constipation Anxiety Surgical History History of right knee joint replacement Status post right knee replacement History of left knee replacement S/P trigger finger release History of tonsillectomy History of carpal tunnel release of both wrists History of total abdominal hysterectomy and bilateral salpingo-oophorectomy History of colonoscopy 07/2021 History of oral surgery S/P cholecystectomy Family History Mother Cancer, colon Colorectal cancer Father Prostate cancer Arthritis Malignant melanoma Cancer Sister Arthritis Grandmother (Paternal) Family history of diabetes mellitus Other No family history of adverse response to anesthesia Denies family history of Ovarian cancer Myocardial infarction Breast cancer Social History Smoking Status: Never smoker Second Hand Exposure: No; Do You Dip or Chew Tobacco: No; Hx Alcohol Use: Yes Alcohol type: wine Hx Substance Use: No Preferred Language: Beninese Communication Ability: Effective Visual Impairment: No Limitations Hearing Ability: Normal 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 Required: No Beliefs That Will Affect Care: None marital status: Current Living Situation: Spouse current occupational status: retired Other Information That Helps Us Care for You: No Feels Safe at Home: Yes Safety Concerns: Feels Safe At This Time Childhood Exposure to Second-Hand Smoke: No Dental Care, Regularly: Yes Physical Activity Frequency: Does not Exercise Seatbelt Use: always Sunscreen Use: Yes Assistive Devices: Cane and Walker Assistive Devices Comment: walker/cane as needed for hip pain Review of Systems Review of Systems: All systems reviewed & are unremarkable except as noted in HPI & below Physical Exam Physical Exam: General: patient resting comfortably, NAD, non-toxic in appearance, AA&O x 4 Skin: warm, dry, intact, no rashes or lesions HEENT: NC/AT, PERRL, EOMI, anicteric sclera, conjunctiva without injection, external ear normal to inspection and nontender, nares patent, moist mucus memb ranes, dentition intact, no oropharyngeal lesions, neck supple, trachea midline, no LAD, no thyromegaly, no JVD Heart: +S1/S2, regular, no m/r/g Lungs: equal air entry bilaterally, no rales/rhonchi/wheezes Abd: +BS, soft, NT/ND, no masses/organomegaly/ascites, right flank pain Ext: warm, 2+ pulses in UE/LE bilaterally, no clubbing/cyanosis or edema Neuro: nonfocal, patient AA&O x 4, speech intact, no facial droop, moving all extremities on command with equal strength 5/5 Results & Data Results & Data Vital Signs (Past 12 Hours) Vital Signs Temp Pulse Resp BP Pulse Ox O2 Del Method 11/27/23 21:45 36.3 C L 70 16 164/97 H 91 Room Air Laboratory Results Labs from earlier today reviewed. No leukocytosis. Renal function intact. Urinalysis without bacteria Diagnostic Findings ABDOMEN AND PELVIS CT WITHOUT CONTRAST CT DOSE: 1380.75 mGy.cm HISTORY: Acute right-sided flank pain R flank pain, kidney stone TECHNIQUE: Multiaxial CT images of the abdomen and pelvis were performed without contrast. A dose lowering technique was utilized adhering to the principles of ALARA. COMPARISON STUDY: 05/19/2023 FINDINGS: Clear lung bases. No free air. The unenhanced spleen, pancreas and adrenal glands are unremarkable. Cholecystectomy. Equivocal marginal nodularity of the liver redemonstrated. Cortical thinning of the kidneys with mild nonspecific bilateral perinephric stranding. There are 2 nonobstructing calculi in the interpolar right kidney measuring up to 4 mm. Mild right-sided hydroureteronephrosis secondary to an obstructing 6 x 4 x 9 mm calculus of the proximal right ureter just distal to the ureteropelvic junction at the level of L4. Probable cyst of the inferior pole right kidney, 1.7 cm. Decompressed urinary bladder. Hysterectomy with pelv ic floor relaxation. Atherosclerosis of the aorta. No bowel obstruction or bowel wall thickening. Colonic diverticulosis without acute diverticulitis. Normal appendix. No acute fracture. IMPRESSION: 1. Mild right-sided hydronephrosis secondary to an obstructing proximal ureteral calculus measuring 9 mm. 2. Right nephrolithiasis. 3. Colonic diverticulosis. 4. Additional findings as above. ACT 112: Negative or not required by law. The above report was generated using voice recognition software. It may contain grammatical, syntax or spelling errors. Electronically signed by: Chuckie Duque M.D. 11/27/2023 7:37 AM Dictated: 11/27/23730 Transcribed: 11/27/23730 PG Care Time/CCT Total # of Minutes Spent Total Time Spent with Patient: Total time spent is greater than 50% in coordination of care (as documented) at patient's floor/unit and/or counseling patient: Coding Level of Care Code 96482 INT INP/OBS CARE 2/55MIN Diagnoses Right ureteral stone N20.1 Anxiety F41.9
[2023-11-28] MEDS ORDERED: MoRPHine SULFATE 2 MG/ML CARP IV PRN (00:17)
[2023-11-28] MEDS: TAMSULOSIN HCL 0.4 MG CAP PO ONE (01:44)
[2023-11-28] MEDS: SODIUM CHLORIDE 0.9% 1,000 ML IV SCH (01:45)
[2023-11-28] MEDS: MoRPHine SULFATE 4 MG/ML 1 ML CARP\\VIAL IV PRN (02:38)
[2023-11-28] MEDS: ONDANSETRON INJ 2 MG/ML 2 ML VIAL IV PRN (05:25)
[2023-11-28 06:21] LABS: Appearance Urine Turbid (Clear); Bilirubin Urine Negative (Negative); Blood Urine 3+ (Negative); Glucose Urine UA Negative (Negative); Ketones Urine Negative (Negative); Leukocyte Esterase Urine Negative (Negative); Nitrite Urine Positive (Negative); Protein Urine 1+ (Negative); Specific Gravity Urine >= 1.030 (1.000-1.030); Urobilinogen Urine Negative (Negative); pH Urine 5.5 (4.5-7.5)
[2023-11-28] MEDS: ACETAMINOPHEN 325 MG TAB PO PRN (06:26)
[2023-11-28] MEDS: PROMETHAZINE HCL 12.5 MG in SODIUM CHLORIDE 0.9% 50 ML IV STA (06:26)
[2023-11-28 06:35] LABS: Color Urine Dark Yellow
[2023-11-28 06:45] LABS: Epithelial Cell Urine 0-5 /lpf (0-5)
[2023-11-28 06:46] LABS: Amorphous Sediment Urine Present (None Prsent)
[2023-11-28 06:47] LABS: Bacteria Urine 1+ (Negative)
[2023-11-28 07:19] LABS: BUN Creatinine Ratio 18.3 (10-20); Calcium 8.9 mg/dl (8.6-10.3); Creatinine Clr Calc Pharmacy 81.2 ml/min; Est GFR (African American) 85.8 ml/min; Potassium 3.9 mmol/L (3.5-5.1)
[2023-11-28 08:01] LABS: Basophils # (auto) 0.02 K/uL (0.00-0.20); Basophils % (auto) 0.2 %; Eosinophils # (auto) 0.02 K/uL (0.00-0.50); Eosinophils % (auto) 0.2 %; Hematocrit (blood only) 33.2 % (37.0-47.0); Hemoglobin 10.7 g/dl (12.0-16.0); Immature Granulocytes # (auto) 0.06 K/uL (0.01-0.20); Immature Granulocytes % (auto) 0.5 %; Lymphocytes % (auto) 12.8 %; Mean Corpuscular Hemoglobin 30.6 pg (25.0-34.0); Mean Corpuscular Hgb Conc 32.2 g/dL (32.0-36.0); Mean Corpuscular Volume 94.9 fL (80.0-100.0); Monocytes # (auto) 0.71 K/uL (0.11-0.59); Monocytes % (auto) 6.5 %; Neutrophils # (auto) 8.72 K/uL (1.40-6.50); Neutrophils % (auto) 79.8 %; Platelet Count 268 K/uL (130-400); RDW Coefficient of Variation 15.3 % (11.5-14.5); RDW Standard Deviation 52.2 fL (36.4-46.3); White Blood Count 10.93 K/ul (4.8-10.8)
--- NOTE | 2023-11-28 08:15 | Urology Progress Note ---
Date of Service November 28, 2023 Assessment & Plan (1) Renal colic on right side: (2) Right ureteral stone: Plan Since she has not passed the stone and is still having some pain, we discussed proceeding to surgery with cystoscopy, right retrograde pyelogram and right ureteral stent placement. We reviewed risks of bleeding, infection, injury to nearby structures, need for additional procedures, inability to place a stent. She expressed understanding and would like to proceed with surgery Admission and Anticipated Discharge Date Admission Date: November 27, 2023 Subjective Feeling okay this morning, still having some right-sided flank pain. She has not passed the stone. Slight increase in leukocytosis (WBC 10.93) and creatinine (0.82) Review of Systems Review of Systems: 12 point review of systems negative exce pt for otherwise indicated. Physical Exam Physical Exam: Well-appearing, NAD Results & Data Vital Signs (Past 12 Hours) Vital Signs Temp Pulse Pulse Resp BP BP Pulse Ox 11/28/23 07:40 36.6 C 75 17 147/74 H 93 11/28/23 07:25 11/28/23 00:19 11/28/23 00:19 37.0 C 69 16 133/78 96 11/27/23 21:45 36.3 C L 70 16 164/97 H 91 O2 Del Method 11/28/23 07:40 Room Air 11/28/23 07:25 Room Air 11/28/23 00:19 Room Air 11/28/23 00:19 Room Air 11/27/23 21:45 Room Air PG Care Time/CCT Total # of Minutes Spent Total Time Spent with Patient: Total time spent is greater than 50% in coordination of care (as documented) at patient's floor/unit and/or counseling patient: Coding Level of Care Code 40741 SUB INP/OBS CARE 11/04MIN Diagnoses Renal colic on right side N23 Right ureteral stone N20.1
--- NOTE | 2023-11-28 08:49 | Anesthesiology Consultation ---
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 History Surgery Operation Date: 11/28/23 13:00 Proposed Procedures p Cystoscopy - Nate Jain MD Height/Weight Height: 5 ft 4 in Weight: 111.1 kg Allergies Allergy/AdvReac Type Severity Reaction Status Date / Time No Known Allergies Allergy Verified 11/27/23 08:16 Medications Home Medications Medication Instructions Recorded Confirmed Last Taken ascorbic acid (vitamin C) 500 mg 500 mg PO QAM 03/21/19 11/27/23 11/27/23 tablet biotin 2,500 mcg capsule 2,500 mcg PO QAM 03/21/19 11/27/23 11/27/23 calcium carbonate 600 mg-vitamin 1 tab PO QAM 03/23/20 11/27/23 11/27/23 D3 10 mcg (400 unit) tablet (Calcium 600 + D(3)) lactobacillus combination no.4 3 3 mmu cells PO QAM 03/23/20 11/27/23 11/27/23 billion cell capsule (Probiotic) omega-3 fatty acids 1,000 mg 1,000 mg PO QAM 03/23/20 11/27/23 11/27/23 capsule psyllium husk 3.4 gram/5.4 gram 1 tbsp PO DAILY PRN Constipation 07/07/21 11/27/23 07/14/21 oral powder (Metamucil) acetaminophen 500 mg capsule 1,000 mg PO Q6H PRN Pain 12/12/22 11/27/23 06/15/23 sertraline 50 mg tablet 50 mg PO HS #90 tabs 09/30/23 11/27/23 11/26/23 celecoxib 200 mg capsule 200 mg PO BID 11/27/23 11/27/23 3 Days Ago ~11/24/23 hydrocodone 5 mg-acetaminophen 325 1 tab PO Q6H PRN pain #20 tabs 11/27/23 Unknown mg tablet pantoprazole 40 mg tablet,delayed 40 mg PO QAM 11/27/23 11/27/23 11/27/23 release tamsulosin 0.4 mg capsule (Flomax) 0.4 mg PO DAILY #7 caps 11/27/23 Unknown Active Medications Generic Name Dose Route Start Last Admin Trade Name Freq PRN Reason Stop Dose Admin Acetaminophen 650 mg 11/28/23 00:17 11/28/23 06:26 Acetaminophen 325 Mg Tab PO 12/28/23 00:16 650 mg Q4H PRN Administration pain/fever Sodium Chloride 1,000 mls @ 100 mls/hr 11/28/23 00:17 11/28/23 01:45 Nss IV 11/28/23 20:16 100 mls/hr .Q10H NURIA Administration Morphine Sulfate 4 mg 11/28/23 00:17 11/28/23 05:55 Morphine Sulfate 4 Mg/Ml 1 Ml Carp\Vial IV 12/12/23 00:16 4 mg Q3H PRN Administration Pain (6,7,8,9,10) Ondansetron HCl 4 mg 11/28/23 00:17 11/28/23 05:25 Ondansetron Inj 2 Mg/Ml 2 Ml Vial IV 12/28/23 00:16 4 mg Q6H PRN Administration Nausea Past Medical History Medical History Nasal mucosa dry Diverticulitis of rectosigmoid Suspected 2018 novel coronavirus infection END 11/2020-SYMPTOMS LOSS TASTE AND SMELL-DID NOT GET TESTED/SPOUSE HAS SAME SYMPTOMS AND HE HAD POSITIVE COVU=ID TEST AT THE SAME TIME-PT STILL HAS SOME IMPAIRED TASTE AND SMELL Kidney stones Incidental finding on imaging Cancer SKIN CANCER-NOT MELANOMA Removed Fatty liver Morbid obesity with BMI of 40.0-44.9, adult Cardiac murmur I-II/ murmur noted on 11/27/21 PAT exam. ECHO from 2018 showed no significant valvular abnormalities Joint pain ongoing in lt hip Left lower quadrant abdominal pain occurs with her diverticulitis Acute diverticulitis 6th episode - 05/2023 Obesity, morbid, BMI 40.0-49.9 Constipation Anxiety Past Family History Family History Mother Cancer, colon Colorectal cancer Father Prostate cancer Arthritis Malignant melanoma Cancer Sister Arthritis Grandmother (Paternal) Family history of diabetes mellitus Other No family history of adverse response to anesthesia Denies family history of Ovarian cancer Myocardial infarction Breast cancer Past Surgical History Surgical History History of right knee joint replacement Status post right knee replacement History of left knee replacement S/P trigger finger release History of tonsillectomy History of carpal tunnel release of both wrists History of total abdominal hysterectomy and bilateral salpingo-oophorectomy History of colonoscopy 07/2021 History of oral surgery S/P cholecystectomy Social History Smoking Status: Never smoker Do You Dip or Chew Tobacco: No Hx Alcohol Use: Yes Alcohol type: wine alcohol intake frequency: holidays/special occasions only Hx Substance Use: No substance use type: does not use Physical Exam Vital Signs Last Vital Signs Temp 97.9 F 11/28/23 07:40 Pulse 75 11/28/23 07:40 Resp 17 11/28/23 07:40 BP 147/74 H 11/28/23 07:40 Pulse Ox 93 11/28/23 07:40 O2 Del Method Room Air 11/28/23 07:40 Testing Laboratory Results 11/28/23 06:09 11/28/23 06:09 Urine Color Dark Yellow 11/28/23 06:00 Urine Appearance Turbid (Clear) A 11/28/23 06:00 Urine pH 5.5 (4.5-7.5) 11/28/23 06:00 Ur Specific Perry >= 1.030 (1.000-1.030) 11/28/23 06:00 Urine Protein 1+ (Negative) H 11/28/23 06:00 Urine Glucose (UA) Negative (Negative) 11/28/23 06:00 Urine Ketones Negative (Negative) 11/28/23 06:00 Urine Nitrite Positive (Negative) A 11/28/23 06:00 Ur Leukocyte Esterase Negative (Negative) 11/28/23 06:00 Urine RBC 5-10 /hpf (0-4) H 11/28/23 06:00 Urine WBC 5-10 /hpf (0-5) H 11/28/23 06:00 Ur Epithelial Cells 0-5 /lpf (0-5) 11/28/23 06:00 Electrocardiogram Date: 11/27/21 Findings: + NSR @ (75 bpm)
[2023-11-28] MEDS: TAMSULOSIN HCL 0.4 MG CAP PO SCH (09:48)
[2023-11-28] MEDS: PANTOprazole 40 MG TAB PO SCH (09:48)
[2023-11-28] MEDS: cefTRIAXone SODIUM 2,000 MG in DEXTROSE 5 % MINI-B 50 ML IV SCH (10:38)
[2023-11-28] MEDS ORDERED: MIDAZOLAM HCL 1 MG/ML 2ML VIAL ONE (11:25)
[2023-11-28] MEDS ORDERED: fentaNYL citrate PF 100 MCG/2 ML VIAL ONE (11:25)
[2023-11-28] MEDS ORDERED: ONDANSETRON INJ 2 MG/ML 2 ML VIAL IV PRN (12:04)
[2023-11-28] MEDS ORDERED: fentaNYL citrate PF 100 MCG/2 ML VIAL IV PRN (12:04)
[2023-11-28] MEDS ORDERED: ATROPINE SULFATE 0.1 MG/ML 10ML SYR IV PRN (12:04)
[2023-11-28] MEDS ORDERED: ePHEDrine sulfate 50 MG/ML AMP IV PRN (12:04)
--- NOTE | 2023-11-28 12:47 | Hospitalist Progress Note ---
Date of Service November 28, 2023 Assessment & Plan (1) Right ureteral stone: Plan: patient with 9 mm obstructing right renal stone. Pain currently well- controlled but reutnrs after pain meds wear off With mild leukocytosis now and repeat UA abnormal, indicating infection, Ur cx pending Urology to take for ureteral stent today -Start Rocephin for UTI, follow urine cx Pain control with morphine as needed, nausea control with Zofran as needed Flomax 0.4 mg p.o. daily continue IVFs -follow CBC< BMP for renal function (2) Anxiety: Plan: Chronic. Stable. Continue sertraline (3) UTI (urinary tract infection): Plan: as above (4) Cirrhosis of liver: Plan: recent diagnosis, follows with GI compensated, likely from FLOWERS but does have +JOSH and Anti-smooth muscle ab positive f/u with GI avoid high doses of tylenol Plan Dispo-continued stay Admission and Anticipated Discharge Date Admission Date: November 27, 2023 Subjective Pt about to go for ureteral stent. Has no pain currently after receiving pain medicine. Is urinating dark brown urine. Having nausea and some dry heaves but no vomiting. No CP, SOB, lightheadedness Physical Exam Constitutional: WD/WN, vitals as above Neck: trachea midline, no thyromegaly Respiratory: normal respiratory effort, lungs clear to auscultation Cardiovascular: RRR, no murmur, no edema Chest (Breasts): Chest: normal inspection of chest Gastrointestinal (Abdomen): normal bowel sounds, soft, nontender, no hepatosplenomegaly Musculoskeletal: Extremities: extremities normal to inspection; no cyanosis and no clubbing Skin: no rashes, warm and dry Neurologic: moves all extremities and awake; no focal motor deficits Psychiatric: A+Ox3, euthymic affect Lymphatic: no lymphedema Results & Data Results & Data Vital Signs (Past 12 Hours) Vital Signs Temp Pulse Resp BP Pulse Ox O2 Del Method 11/28/23 07:40 36.6 C 75 17 147/74 H 93 Room Air 11/28/23 07:25 Room Air Laboratory Results CBC, BMP, UA reviewed PG Care Time/CCT Total # of Minutes Spent Total Time Spent with Patient: Total time spent is greater than 50% in coordination of care (as documented) at patient's floor/unit and/or counseling patient: Coding Level of Care Code 38191 SUB INP/OBS CARE MIN Diagnoses Right ureteral stone N20.1 Anxiety F41.9 UTI (urinary tract infection) N39.0 Cirrhosis of liver K74.60
--- NOTE | 2023-11-28 13:15 | Operative Report ---
PG Post Operative Report Pre & Post Diagnosis Operation Date: 11/28/23 13:00 Pre-Op Diagnosis: Right OBSTRUCTING STONE Post-Op Diagnosis: Right OBSTRUCTING STONE I identified the patient and participated in the time-out.: Yes Procedure Operation Date: 11/28/23 13:00 Actual Procedures p Cystoscopy, right retrograde pyelogram, right ureteral stent Placement - Nate Jain MD Surgeon Nate Jain MD Viticulturist None Estimated Blood Loss 0 Findings Consistent with Post-Op Diagnosis Specimens None Drains 6 Micronesian by 24 cm double-J ureteral stent in the right ureter Anesthesia Type MAC Complications none Disposition Accompanied Patient To Recovery: Yes Disposition: Recovery Room Indications This is a 68-year-old female currently admitted to the hospital with a right ureteral stone. Due to ongoing pain, she presents to the OR today for right ureteral stent placement Description of Procedure The patient was identified in the holding area and informed consent was confirmed. She was marked on the right side, then was taken to the operating room where anesthesia was initiated. She was placed in the dorsal lithotomy position with all pressure points appropriately padded. She was prepped and draped in the usual sterile fashion and a preoperative timeout was performed. A well-lubricated cystoscope was inserted per urethra and panendoscopy was performed. The urethra was normal in appearance. The bladder was of normal size with ureteral orifices in orthotopic position. The right ureteral orifice was identified and cannulated with a 5 Micronesian open- ended catheter. A retrograde pyelogram was performed demonstrating the distal ureter was normal in course and caliber. In the proximal ureter, there is an area where there was minimal passage of contrast. This was likely the stone. A 0.038" ZIPwire was advanced to the level of the kidney under fluoroscopic guidance. Over the wire, a 6 Micronesian x 24 centimeter double-J ureteral stent was advanced. When the wire was removed, the proximal curl was visualized in the kidney with x-ray, and the distal curl visualized in the bladder with the cystoscope. At this point the bladder was drained and all instrumentation was removed. The patient was then awakened from anesthesia and was brought to the PACU in stable condition. I attest to the content of the Intraoperative Record and any orders documented therein. Any exceptions are noted below.
--- NOTE | 2023-11-28 13:17 | Fluoroscopy Report ---
FL retrograde includes kub CLINICAL HISTORY: RETROGRADE, STENT PLACEMENT COMPARISON STUDY: CT of the abdomen and pelvis November 27, 2023. FLUOROSCOPY TIME: 11 seconds. Ka, r: 7.31 mGy FLUOROSCOPIC IMAGES: 1 FINDINGS: Fluoroscopy was provided during right retrograde exam with right ureteral stent placement. The proximal aspect of the stent projects over the right collecting system. IMPRESSION: Fluoroscopy provided during right retrograde exam with right ureteral stent placement. ACT 112: Negative or not required by law. Electronically signed by: Roberto Powers M.D. 11/28/2023 1:16 PM
--- NOTE | 2023-11-28 13:33 | Anesthesiology Progress Note ---
Date of Service November 28, 2023 Anesthesia Post Procedure Vital Signs Vital Signs: Temp Pulse Pulse Pulse Resp BP BP 11/28/23 13:23 85 12 117/65 11/28/23 13:13 97.9 F 102 H 12 106/62 11/28/23 07:40 97.9 F 75 17 11/28/23 07:25 11/28/23 00:19 11/28/23 00:19 98.6 F 69 16 11/27/23 21:45 97.3 F L 70 16 164/97 H BP Pulse Ox O2 Del Method O2 Flow Rate 11/28/23 13:23 98 Oxymask 4 11/28/23 13:13 95 Oxymask 6 11/28/23 07:40 147/74 H 93 Room Air 11/28/23 07:25 Room Air 11/28/23 00:19 Room Air 11/28/23 00:19 133/78 96 Room Air 11/27/23 21:45 91 Room Air Pain Intensity Right Abdomen: Pain Intensity: 2 Abdomen: Pain Intensity: 2 Transfer of Care Handoff Completed per policy Notes Mental Status: alert / awake / arousable and participated in evaluation Patient Amnestic to Procedure: Yes Nausea / Vomiting: adequately controlled Pain: adequately controlled Airway Patency, RR, SpO2: stable & adequate BP & HR: stable & adequate Hydration State: stable & adequate Anesthetic Complications: no major complications apparent and Pt Satisfied with anesthetic care
[2023-11-28] MEDS: ceFAZolin 2000MG 2,000 MG/15 ML SYR IV ONE (13:44)
[2023-11-28] MEDS: SERTRALINE HCL 50 MG TABLET PO SCH (20:29)
[2023-11-29 08:17] LABS: BUN Creatinine Ratio 18.2 (10-20); Calcium 8.7 mg/dl (8.6-10.3); Creatinine Clr Calc Pharmacy 100.9 ml/min; Est GFR (African American) 105.9 ml/min; Est GFR (Non-African American) 91.4 ml/min; Potassium 4.6 mmol/L (3.5-5.1)
[2023-11-29 08:23] LABS: Agglutinated RBC 1+; Basophils # (auto) 0.03 K/uL (0.00-0.20); Basophils % (auto) 0.3 %; Eosinophils # (auto) 0.07 K/uL (0.00-0.50); Eosinophils % (auto) 0.7 %; Hematocrit (blood only) 30.8 % (37.0-47.0); Hemoglobin 10.2 g/dl (12.0-16.0); Immature Granulocytes # (auto) 0.04 K/uL (0.01-0.20); Immature Granulocytes % (auto) 0.4 %; Lymphocytes # (auto) 1.89 K/uL (1.20-3.40); Lymphocytes % (auto) 19.7 %; Mean Corpuscular Hemoglobin 31.1 pg (25.0-34.0); Mean Corpuscular Hgb Conc 33.1 g/dL (32.0-36.0); Mean Corpuscular Volume 93.9 fL (80.0-100.0); Monocytes # (auto) 0.74 K/uL (0.11-0.59); Monocytes % (auto) 7.7 %; Neutrophils # (auto) 6.82 K/uL (1.40-6.50); Neutrophils % (auto) 71.2 %; Platelet Count 265 K/uL (130-400); Polychromasia 1+; RDW Coefficient of Variation 15.4 % (11.5-14.5); RDW Standard Deviation 52.9 fL (36.4-46.3); Red Blood Count 3.28 M/uL (4.20-5.40); White Blood Count 9.59 K/ul (4.8-10.8)
--- NOTE | 2023-11-29 13:44 | Discharge Summary ---
Date of Service November 29, 2023 Admission HPI Per Admitting Provider Elise Negro is a 68-year-old female with history of renal stones presenting with right flank pain, nausea and 3 episodes of nonbloody/nonbilious vomiting which is all been ongoing throughout the day. She was seen in the ER earlier today with similar complaints and had a CT scan obtained which confirmed presence of a 9 mm stone. She was ultimately discharged home with medications She returns with ongoing symptoms In the ER she is afebrile, hemodynamically stable ER course: Labs not obtained Toradol 15 mg Zofran 4 mg Normal saline Principal Diagnosis Right ureteral calculus and colic, mild right hydronephrosis Discharge Exam General-alert and oriented x3, no fevers, no chills HEENT-head atraumatic and normocephalic, pupils equal and reactive to light, extraocular muscles intact Neck-no lymphadenopathy or thyromegaly, trachea midline Chest-clear to auscultation. No rales, wheezing or rhonchi Cardiac-regular rate and rhythm, normal S1 and S2, no murmurs Abdomen-normal bowel sounds, nontender, no hepatosplenomegaly Extremities-no cyanosis, clubbing, or edema Neuro-cranial nerves II through XII intact, motor and sensory function within normal limits, strength symmetrical, no focal deficits Psych-normal affect, normal mood Discharge Data Allergies Allergy/AdvReac Type Severity Reaction Status Date / Time No Known Allergies Allergy Verified 11/27/23 08:16 Consultations 11/27/23 22:22 ED Decision to Admit Stat 11/27/23 22:48 Consult Urology Routine Procedures Performed Operation Date: 11/28/23 13:00 Actual Procedures p Cystoscopy Right Sent Placement(Right) - Nate Jain MD Ordered Studies 11/28/23 FL retrograde includes kub Routine Hospital Course (1) Right ureteral stone: 9 mm obstructing right renal stone with ureteral colic. . Appreciate urology consultation and recommendations. She underwent right ureter stent placement yesterday, November 28. She is now on Flomax and Rocephin. She will be disch arged on Flomax and oral ciprofloxacin. (2) Anxiety: Stable. Continue sertraline (3) UTI (urinary tract infection): Ruled out. Cultures are negative (4) Cirrhosis of liver: recent diagnosis, follows with GI. No acute problems. Plan Discharge to home today, February 19 Total Time Total Time Spent Total Time Spent (In Minutes): 45 minutes Discharge Plan Discharge Items Patient Disposition: Home - Self-Care Reason For Visit: OBSTRUCTING STONE Discharge Diagnosis: Right ureteral calculus and colic, mild right hydronephrosis Condition on Discharge: Good Activity: Resume your previous activity Non-emergency contact: Primary Care Provider and Urologist Call non-emergency contact if: you have any medication questions and your symptoms worsen Follow-up/Referrals: Edgar Talavera MD [Primary Care Provider] - Diet: Regular Addtl Attending Provider Instructions: Take Flomax 0.4 mg daily. Take Cipro 500 mg twice a day for 5 days Pending Studies at Discharge: No Stand-Alone Forms: My [employer] for [employer], Smoking Cessation Medications and DC Order Prescriptions: New ciprofloxacin HCl [Cipro] 500 mg tablet 500 mg PO BID Qty: 10 0RF tamsulosin 0.4 mg capsule 0.4 mg PO DAILY Qty: 10 0RF Continued sertraline 50 mg tablet 50 mg PO HS Qty: 90 3RF biotin 2,500 mcg capsule 2,500 mcg PO QAM ascorbic acid (vitamin C) 500 mg tablet 500 mg PO QAM omega-3 fatty acids 1,000 mg Capsule 1,000 mg PO QAM calcium carbonate-vitamin D3 [Calcium 600 + D(3)] 600 mg(1,500mg) -400 unit Tablet 1 tab PO QAM Probiotic 3 billion cell Capsule 3 mmu cells PO QAM Metamucil 3.4 gram/5.4 gram Powder 1 tbsp PO DAILY PRN (Reason: Constipation) acetaminophen 500 mg capsule 1,000 mg PO Q6H PRN (Reason: Pain) celecoxib 200 mg capsule 200 mg PO BID pantoprazole 40 mg tablet,delayed release (DR/EC) 40 mg PO QAM hydrocodone-acetaminophen 5-325 mg tablet 1 tab PO Q6H PRN (Reason: pain) Qty: 20 0RF tamsulosin [Flomax] 0.4 mg capsule 0.4 mg PO DAILY Qty: 7 0RF Discharge Orders: Discharge Order (Routine); Ordered 11/29/23 Ordered By: Dameon Camacho Admission Data Admit Date/Time: 11/27/23 22:48 Attending Provider: Dameon Camacho Admit Provider: Lisbeth Walden Primary Care Provider: Edgar Talavera V. Other Providers: Lisbeth Walden; Nate Jain Coding Level of Care Code 22472 INP/OBS DISCH >30 MIN Diagnoses Right ureteral stone N20.1 Anxiety F41.9 UTI (urinary tract infection) N39.0 Cirrhosis of liver K74.60
--- NOTE | 2023-11-29 14:17 | Urology Progress Note ---
Date of Service November 29, 2023 Assessment & Plan (1) Right ureteral stone: (2) UTI (urinary tract infection): Plan POD #1 s/p Cystoscopy, right retrograde pyelogram, right ureteral stent Placement Afebrile and hemodynamically stable. Labs today show no leukocytosis and normal renal function. Urine culture 11/27 final with more than 3 types of organisms, repeat urine culture 11/28 preliminary no growth. Tolerating the ureteral stent with minimal bother. Okay to d/c from perspective when medically stable. Recommend Tamsulosin, PRN Pyridium, and course of antibiotics on discharge. Will arrange outpatient follow-up with our service. Urology will sign-off. Please call with any further questions or concerns. Admission and Anticipated Discharge Date Admission Date: November 27, 2023 Subjective Patient examined at bedside this AM. Awake, resting in bed on arrival. No acute distress. Denies any significant pain or discomfort at present. No fevers. Tolerating stent with minimal bother. Voiding without issue. Review of Systems Constitutional: as per Subjective / HPI Gastrointestinal: as per Subjective / HPI Genitourinary: as per Subjective / HPI Physical Exam Constitutional: no acute distress Respiratory: no respiratory distress and no labored breathing Skin: No visible rashes or lesions to exposed skin areas Neurologic: moves all extremities and awake Psychiatric: A+Ox3, euthymic affect Results & Data Vital Signs (Past 12 Hours) Vital Signs Temp Pulse Pulse Resp BP BP Pulse Ox 11/29/23 14:10 36.8 C 86 76 15 108/65 130/64 94 11/29/23 12:32 36.8 C 86 11/29/23 12:18 37.6 C H 95 H 15 108/65 94 11/29/23 07:45 37.0 C 84 17 130/64 92 11/29/23 03:41 37.2 C 76 16 111/63 95 O2 Del Method 11/29/23 14:10 11/29/23 12:32 11/29/23 12:18 Room Air 11/29/23 07:45 Room Air 11/29/23 03:41 Room Air PG Care Time/CCT Total # of Minutes Spent Total Time Spent with Patient: Total time spent is greater than 50% in coordination of care (as documented) at patient's floor/unit and/or counseling patient: Coding Level of Care Code 60683 SUB INP/OBS CARE MIN Diagnoses Right ureteral stone N20.1 UTI (urinary tract infection) N39.0
== END 2023-11-29 16:01 | disposition home or self-care (01) | DRG 660 ==
LOC: ED 21:43 → 3N 22:48 → SUATTDRO 22:48 → 3N 23:21

== ENCOUNTER 2025-08-31 11:06 | Observation (INO) ==
--- NOTE | 2025-08-01 13:42 | PAT Medication Instructions ---
Medication Instructions Date of Service August 01, 2025 Home Medications Medication Instructions Recorded ferrous fumarate 325 mg (106 mg 325 mg PO Q OTHER DAY #30 tabs 07/19/24 iron) tablet (Ferretts) pantoprazole 40 mg tablet,delayed 40 mg PO QAM #90 tabs 05/02/25 release duloxetine 30 mg capsule,delayed 90 mg (3 x 30 mg) PO BID #90 caps 07/27/25 release ascorbic acid (vitamin C) 500 mg tablet 500 mg PO QAM biotin 2,500 mcg capsule 2,500 mcg PO QAM lactobacillus combination no.4 3 billion cell capsule (Probiotic) 3 mmu cells PO QAM calcium-magnesium tablet 1 tab PO QAM ferrous fumarate 325 mg (106 mg iron) tablet (Ferretts) 325 mg PO Q OTHER DAY pantoprazole 40 mg tablet,delayed release 40 mg PO QAM psyllium seed (sugar) oral powder 1 tbsp PO DAILY PRN Constipation triamcinolone acetonide 0.1 % topical cream 1 applic topical BID PRN flaring duloxetine 30 mg capsule,delayed release 90 mg (3 x 30 mg) PO BID STOP taking 24 hours before surgery triamcinolone acetonide 0.1 % topical cream 1 applic topical BID PRN flaring DO NOT take the morning of surgery ascorbic acid (vitamin C) 500 mg tablet 500 mg PO QAM biotin 2,500 mcg capsule 2,500 mcg PO QAM lactobacillus combination no.4 3 billion cell capsule (Probiotic) 3 mmu cells PO QAM calcium-magnesium tablet 1 tab PO QAM ferrous fumarate 325 mg (106 mg iron) tablet (Ferretts) 325 mg PO Q OTHER DAY psyllium seed (sugar) oral powder 1 tbsp PO DAILY PRN Constipation Take morning of surgery With a small sip of water, OTHERWISE NOTHING TO EAT OR DRINK AFTER MIDNIGHT: pantoprazole 40 mg tablet,delayed release 40 mg PO QAM duloxetine 30 mg capsule,delayed release 90 mg (3 x 30 mg) PO BID Take evening before surgery psyllium seed (sugar) oral powder 1 tbsp PO DAILY PRN Constipation (if needed) duloxetine 30 mg capsule,delayed release 90 mg (3 x 30 mg) PO BID Other Notes If you have any questions please call us at [phone] or [phone] or [phone] or [phone]
--- NOTE | 2025-08-07 08:43 | Anesthesiology Consultation ---
Date of Service August 07, 2025 Assessment & Plan (1) Encounter for pre-operative examination: - Outpatient joint pathway: Per surgeon and patient, plan for outpatient joint program. Case discussed in detail with Dr. Newell given patient reported intermittent gait abnormality if experiencing flare of chronic joint pain. He advised plan that patient is an acceptable candidate for Same Day Joint Program from anesthesia perspective pending perioperative course and post-op ambulation with ultimate determination to assigned anesthesiologist. Pending patient is motivated, has good support and surgeon's office completes Same Day Joint Program preop requirements-patient may proceed with outpatient TSA. Surgeon's office made aware. Chart Review Chart Review: Acceptable Risk for Surgery and Patient seen in Pre Admission Testing Teaching & Discussion Pre-Anesthesia Teaching/Discussion Notes: Instructed NPO after midnight before surgery, except medications with 15 cc of water. Medication instructions provided according to the PAT guidelines. History Surgery Operation Date: 08/31/25 08:00 Proposed Procedures p OP: Left Reverse Total Shoulder Arthroplasty - Luke Rangel DO Height/Weight Height: 5 ft 4 in Weight: 106.7 kg Allergies Allergy/AdvReac Type Severity Reaction Status Date / Time No Known Allergies Allergy Verified 07/27/25 10:10 Medications Home Medications Medication Instructions Recorded Confirmed Last Taken ascorbic acid (vitamin C) 500 mg 500 mg PO QAM 03/21/19 07/27/25 12/15/23 08:00 tablet biotin 2,500 mcg capsule 2,500 mcg PO QAM 03/21/19 07/27/25 12/15/23 08:00 lactobacillus combination no.4 3 3 mmu cells PO QAM 03/23/20 07/27/25 12/15/23 08:00 billion cell capsule (Probiotic) calcium-magnesium tablet 1 tab PO QAM 12/10/23 07/27/25 12/15/23 08:00 ferrous fumarate 325 mg (106 mg 325 mg PO Q OTHER DAY #30 tabs 07/19/24 07/27/25 Unknown iron) tablet (Ferretts) pantoprazole 40 mg tablet,delayed 40 mg PO QAM #90 tabs 05/02/25 07/27/25 Unknown release psyllium seed (sugar) oral powder 1 tbsp PO DAILY PRN Constipation 07/26/25 07/27/25 Unknown triamcinolone acetonide 0.1 % 1 applic topical BID PRN flaring 07/26/25 07/27/25 Unknown topical cream duloxetine 30 mg capsule,delayed 90 mg (3 x 30 mg) PO BID #90 caps 07/27/25 07/27/25 Unknown release Past Medical History Medical History Abnormal liver enzymes hx Acid reflux controlled, stable per pt Anemia hx, iron infusions Anxiety Arthritis Babesiasis hx, 2022, 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 ECHO from 2018 showed no significant valvular abnormalities Cirrhosis of liver Constipation Dry skin dermatitis Fatty liver hx Gait abnormality hx, occasional if having flare of chronic pain Heart palpitations hx, had cardiac testing/stress test, no cardiac issues found, no further issues History of diverticulitis last flare last year per patient History of kidney stones History of restless legs syndrome Hx of colonic polyps Joint pain ongoing Lyme disease hx, no residual symptoms Menopausal state Morbid obesity with BMI of 40.0-44.9, adult Pain in both lower legs Suspected 2019 novel coronavirus infection 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 Exercise / Class Metabolic Activity II 4-5 Yardwork/Stairs/Walk up hill (denies chest discomfort or shortness of breath walking up one flight of stairs) Past Family History Family History Mother Cancer, colon Colorectal cancer Father Prostate cancer Arthritis Malignant melanoma Cancer Sister Arthritis Grandmother (Paternal) Family history of diabetes mellitus Other No family history of adverse response to anesthesia Denies family history of Ovarian cancer Myocardial infarction Breast cancer Past Surgical History Surgical History History of carpal tunnel release of both wrists History of colonoscopy 2023 History of cystoscopy History of esophagogastroduodenoscopy (EGD) History of intestinal surgery 07/2024, repair colovaginal fistula 08/2024, to repair bowel anastomosis 11/2024, ileostomy created 02/2025, reversal ileostomy History of left knee replacement History of oral surgery History of right knee joint replacement History of tonsillectomy History of total abdominal hysterectomy and bilateral salpingo-oophorectomy Hx of bilateral cataract extraction (2022) S/P cholecystectomy S/P trigger finger release S/P ureteral stent placement Status post colostomy Past Anesthesia History No Hx of Anesthesia Complications and No Family Hx of Anesthesia Complications History of PONV No Hx of PONV and No Hx of Motion Sickness Social History Smoking Status: Never smoker Do You Dip or Chew Tobacco: No Hx Alcohol Use: No Alcohol type: wine Hx Substance Use: No substance use type: does not use Review of Systems Occasional snoring, denies witnessed apneas. Denies previous sleep studies. Patient denies chest pain, shortness of breath, dyspnea on exertion, fever, chills, cough, wheezing, or palpitations. Physical Exam Vital Signs Vitals BP 119/75 P 93 TEMP 99 SP02 95% on RA RESP 18 Physical Patient resting comfortably in chair in no acute distress, alert and oriented, responding appropriately throughout visit Full cervical extension range of motion without pain TMD 3 finger breadths Mallampati Score 3 Dentition: several caps/crowns, denies chipped or loose teeth, implants or bridges Lungs: normal respiratory effort. Good air movement, clear throughout to auscultation, no adventitious breath sounds Cardiac: regular rate and rhythm, 2/6 systolic murmur (present back to 2021 to chart review), no gallops or rubs Carotid arteries: negative bruit bilat Lab Results Anesthesia Preop Results Results Anesthesia Widget: WBC 7.93 K/ul (4.8-10.8) 08/07/25 Hgb 11.1 g/dl (12.0-16.0) L 08/07/25 Hct 32.8 % (37.0-47.0) L 08/07/25 Plt 322 K/uL (130-400) 08/07/25 Na 143 mmol/L (136-145) 08/07/25 K 4.8 mmol/L (3.5-5.1) 08/07/25 Cl 105 mmol/L (98-107) 08/07/25 CO2 32 mmol/L (21-32) 08/07/25 BUN 11 mg/dl (6-23) 08/07/25 Creat 0.65 mg/dl (0.6-1.2) 08/07/25 Glucose Level 119 mg/dl (70-99(Fasting)) H 08/07/25 PT 10.3 Seconds (9.0-12.0) 08/07/25 PTT 25 Seconds (21-31) 08/07/25 INR 1.0 (0.9-1.1) 08/07/25 Blood Type O Positive 08/07/25 Antibody Screen NEGATIVE 08/07/25 Testing Electrocardiogram Date: 08/07/25 NSR with sinus arrhythmia, rate 83 bpm Low voltage QRS Chest X-Ray Date: 11/25/24 *1 view* No compelling radiographic evidence of acute bacterial pneumonia or pulmonary edema Echocardiogram Date: 07/17/22 EF 65-70% No regional wall motion abnormalities Mild cLVH No significant valvular pathology Grade I diastolic dysfunction Mildly dilated LA Other Testing Liver US 05/03/25 1. Cirrhotic liver. No hepatic mass or ascites identified. 2. Cholecystectomy. 3. No biliary ductal dilation.
--- NOTE | 2025-08-30 12:14 | History & Physical Report ---
Date of Service August 30, 2025 Assessment & Plan (1) Rotator cuff tear arthropathy of left shoulder: We will proceed with a left reverse shoulder arthroplasty. Postoperatively, she will be placed in a sling and will be kept overnight in the hospital for postop medical management. She plans to use weeSPIN after discharge. History of Present Illness Chief Complaint: Cuff tear arthropathy left shoulder. Primary Care Provider: Edgar Talavera MD Elise is a 69-year-old female who has been dealing with chronic increasing left shoulder pain. She has worsening pain and weakness of her left shoulder. She has failed years of conservative treatment. She recently saw another provider in our office. X-rays were concerning for cuff tear arthropathy. She was sent for an MRI. MRI shows a massive chronic retracted rotator cuff tear. After failing conservative treatment, she has elected proceed with a left reverse shoulder arthroplasty. Allergies Allergy/AdvReac Type Severity Reaction Status Date / Time No Known Allergies Allergy Verified 07/27/25 10:10 Home Medications Medication Instructions Recorded Confirmed Type ascorbic acid (vitamin C) 500 mg 500 mg PO QAM 03/21/19 07/27/25 History tablet biotin 2,500 mcg capsule 2,500 mcg PO QAM 03/21/19 07/27/25 History lactobacillus combination no.4 3 3 mmu cells PO QAM 03/23/20 07/27/25 History billion cell capsule (Probiotic) calcium-magnesium tablet 1 tab PO QAM 12/10/23 07/27/25 History ferrous fumarate 325 mg (106 mg 325 mg PO Q OTHER DAY #30 tabs 07/19/24 07/27/25 Rx iron) tablet (Ferretts) pantoprazole 40 mg tablet,delayed 40 mg PO QAM #90 tabs 05/02/25 07/27/25 Rx release psyllium seed (sugar) oral powder 1 tbsp PO DAILY PRN Constipation 07/26/25 07/27/25 History triamcinolone acetonide 0.1 % 1 applic topical BID PRN flaring 07/26/25 07/27/25 History topical cream duloxetine 30 mg capsule,delayed 90 mg (3 x 30 mg) PO BID #90 caps 07/27/25 07/27/25 Rx release cholecalciferol (vitamin D3) 50 50 mcg PO DAILY #90 caps 08/08/25 Rx mcg (2,000 unit) capsule mecobalamin (vitamin B12) 1,000 1,000 mcg PO DAILY #90 tabs 08/08/25 Rx mcg chewable tablet Past Med/Surg History Problem List (Updated 08/30/25 @ 12:13 by Luke Rangel DO) Rotator cuff tear arthropathy of left shoulder Vitamin D deficiency disease Vitamin B12 deficiency Acid reflux Abdominal bloating Colovaginal fistula Anemia Right ureteral stone (Acute) H/O diverticulitis of colon Left hip pain Cirrhosis of liver Tendinitis of right rotator cuff Rotator cuff tear, left Thoracic back pain Kidney stones History of colon polyps Steatosis, liver Sleep disturbance Positive JOSH (antinuclear antibody) Mitral valve regurgitation LVH (left ventricular hypertrophy) Impaired fasting glucose Hemorrhoids Redman angioma Arthritis Medical History Dry skin dermatitis History of restless legs syndrome History of kidney stones Hx of colonic polyps Cirrhosis of liver Arthritis Anemia hx, iron infusions Acid reflux controlled, stable per pt Pain in both lower legs Gait abnormality hx, occasional if having flare of chronic pain Heart palpitations hx, had cardiac testing/stress test, no cardiac issues found, no further issues Menopausal state Lyme disease hx, no residual symptoms Babesiasis hx, 2022, no residual effects Abnormal liver enzymes hx History of diverticulitis last flare last year per patient Suspected 2019 novel coronavirus infection 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 ECHO from 2018 showed no significant valvular abnormalities Joint pain ongoing Constipation Anxiety Surgical History Status post colostomy History of esophagogastroduodenoscopy (EGD) Hx of bilateral cataract extraction (2022) History of intestinal surgery 07/2024, repair colovaginal fistula 08/2024, to repair bowel anastomosis 11/2024, ileostomy created 02/2025, reversal ileostomy S/P ureteral stent placement History of cystoscopy History of right knee joint replacement History of left knee replacement S/P trigger finger release History of tonsillectomy History of carpal tunnel release of both wrists History of total abdominal hysterectomy and bilateral salpingo-oophorectomy History of colonoscopy 2023 History of oral surgery S/P cholecystectomy Family History Mother Cancer, colon Colorectal cancer Father Prostate cancer Arthritis Malignant melanoma Cancer Sister Arthritis Grandmother (Paternal) Family history of diabetes mellitus Other No family history of adverse response to anesthesia Denies family history of Ovarian cancer Myocardial infarction Breast cancer Social History Smoking Status: Never smoker Second Hand Exposure: No; Do You Dip or Chew Tobacco: No; Hx Alcohol Use: No Hx Substance Use: No Preferred Language: Spanish Communication Ability: Effective Visual Impairment: No Limitations Hearing Ability: Normal 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 Physical Exam On physical examination of the left shoulder, she has 90 degrees of forward elevation 90 degrees of abduction. She has 4 out of 5 muscle strength throughout.. Constitutional WD/WN, vitals as above Eyes PERRL, conjunctivae normal, anicteric sclerae ENMT external ear and nose normal, oropharynx normal Neck trachea midline, no thyromegaly Respiratory normal respiratory effort Cardiovascular RRR, no murmur, no edema Gastrointestinal (Abdomen) normal bowel sounds, soft, nontender, no hepatosplenomegaly Psychiatric A+Ox3, euthymic affect Results & Data Results & Data Laboratory Results . Diagnostic Findings . PG Care Time/CCT Total # of Minutes Spent Total Time Spent with Patient: Total time spent is greater than 50% in coordination of care (as documented) at patient's floor/unit and/or counseling patient: Coding Level of Care Code None Diagnoses Rotator cuff tear arthropathy of left shoulder M75.102; M12.812
--- NOTE | 2025-08-31 10:56 | History & Physical Bridge Note ---
Date of Service August 31, 2025 History & Physical Bridge Note I have examined the patient, reviewed the History & Physical and in the interval since the performance of the History & Physical I have noted the following changes of clinical significance: no changes noted
[~2025-08-31 11:06] MED LIST changes: -ASCO500T87 PO; -BIOT1CAP8 PO; +BUPIVACAINE 0.5 % 5 MG/1 ML PF 10ML VIAL ONE; -CALC-485 PO; -CITA20TA4 PO; +LIDOCAINE 2% 2 ML VIAL/AMP(20MG/ML) INFIL ONE; +MIDAZOLAM HCL 1 MG/ML 2ML VIAL ONE; -MISCCAP80 PO; -OMEG1CAP71 PO; +ONDANSETRON INJ 2 MG/ML 2 ML VIAL ONE; +PROPOFOL IV EMULSION 10 MG/ML 20 ML VIAL IV ONE; +SODIUM CHLORIDE 0.9% PF INJ 10 ML VIAL ONE; -TRAM-10 PO
[2025-08-31] MEDS: LR 60ML/HR IV SCH (11:36)
[2025-08-31] MEDS: FAMOTIDINE 20 MG TAB PO SCH (11:44)
[2025-08-31] MEDS: GABAPENTIN 300 MG CAP PO SCH (11:44)
[2025-08-31] MEDS: ACETAMINOPHEN 500 MG TAB PO SCH ×2 (11:44→16:51)
[2025-08-31] MEDS: dexAMETHasone**PF** 10 MG/ML VIAL IV SCH (11:44)
[2025-08-31] MEDS: LR 15ML/HR IV SCH (11:47)
[2025-08-31] MEDS: TRANEXAMIC ACID 1,000 MG **IV Pre-op IV SCH (11:52)
[2025-08-31] MEDS: ROPIV 0.5% 246mg, Ketorolac 30mg, EPINEPHrine 0.5mg in NSS INFIL SCH (12:41)
[2025-08-31] MEDS: ORTHO JOINT ANESTHETIC ONE (12:42)
[2025-08-31] MEDS ORDERED: SUGAMMADEX SODIUM 200 MG/2 ML VIAL IV ONE (12:46)
[2025-08-31] MEDS ORDERED: PHENYLEPHRINE 100MCG/ML 5ML SYR ONE (12:46)
--- NOTE | 2025-08-31 13:00 | Operative Report ---
PG Post Operative Report Pre & Post Diagnosis Operation Date: 08/31/25 12:00 Pre-Op Diagnosis: Left Shoulder Rotator Cuff Arthropathy Post-Op Diagnosis: Left Shoulder Rotator Cuff Arthropathy I identified the patient and participated in the time-out.: Yes Procedure Operation Date: 08/31/25 12:00 Actual Procedures p Left Reverse Total Shoulder Arthroplasty, Uncemented(Left) - Luke Rangel DO Surgeon Luke Rangel DO Market Research Analyst Rosanne Gregg PA-C Estimated Blood Loss 250 Findings Consistent with Post-Op Diagnosis Specimens Left humeral head Description of Procedure Implants used: I used a Biomet Comprehensive reverse total shoulder arthroplasty system with a size 10 press fit micro humeral stem, a +6 offset humeral tray and a standard humeral bearing, a 25 mm small augment baseplate with a 6.5 mm central screw and superior and inferior locking screws, and a size 36 mm eccentric glenosphere. Kelsie arrived at [facility] for the above procedure. He was seen in the preoperative holding area and the operative extremity was identified and signed. He was given a preoperative antibiotic, TXA, and an interscalene nerve block. He was taken back to the operating room, laid on table in supine position, and put under general anesthesia. He was then put into the beachchair position. The shoulder was then prepped and draped in sterile fashion. A timeout was done and the patient and the operative extremity was properly identified. A deltopectoral approach was used. Dissection was taken down through the fascia and the deltoid was retracted laterally and the conjoined tendon was retracted medially. The anterior shoulder was exposed. The subscapularis was then directly released off the lesser tuberosity with a peel technique. The inferior capsule was released and the humeral head was dislocated. A canal finding reamer was sent down the center of the humeral canal. Sequential reaming up to a size 10 reamer was done. Off that reamer, a proximal humeral resection guide was placed. The proximal humerus was resected at 135 of inclination and 25 of retroversion. Osteophytes were then removed and the glenoid was exposed. Time was spent doing a complete capsular and labral release. The glenoid guide was then placed in the inferior aspect of the glenoid. A 3.2 mm Steinmann pin was then placed into the glenoid vault at 10 of inclination. The glenoid baseplate was then reamed. The final size 25 mm small augment baseplate was then impacted in the place. A 6.5 mm central screw was then placed followed by superior and inferior locking screws. A 36 mm eccentric glenosphere was then impacted into place. Surrounding soft tissues were then injected with 100 cc an orthopedic pain control cocktail. The proximal humerus was then exposed. Sequential broaching of the humerus up to a size 10 broach was done. Off that broach a +6 offset humeral tray was trialed. The shoulder was then reduced, brought through a full range of motion, and felt to be stable. The shoulder was then dislocated and the broach was removed. The final size 10 micro press-fit humeral stem was then impacted into place. A standard humeral bearing was then snapped onto a +6 offset humeral tray. The humeral tray was then impacted onto the humeral stem. The shoulder was once again reduced, brought through a full range of motion, and felt to be stable. The subscapularis was poor quality and unable to be repaired.. A dilute betadyne lavage was then done for 3 minutes. The joint was then irrigated with normal saline solution. Hemostasis was obtained. The interval was closed with 2-0 Vicryl suture. The skin was then closed with 2-0 Vicryl and Karo Zipline. A Silverlon dressing was placed and the arm was rested in a regular arm sling. He was then extubated and transferred to a hospital bed. He taken to the postanesthesia care unit in stable condition. He tolerated the procedure well. Rosanne Gregg PA-C, was present for the entire procedure. He was critical for patient positioning, prepping, draping, retraction exposure, wound closure and application of sterile dressing. I attest to the content of the Intraoperative Record and any orders documented therein. Any exceptions are noted below.
--- NOTE | 2025-08-31 13:51 | XRay Report ---
XR shoulder LT min 2V routine CLINICAL HISTORY: Post shoulder surgery COMPARISON: None FINDINGS: Left shoulder prosthesis shows no hardware complication. There is expected soft tissue gas . IMPRESSION: Unremarkable postoperative exam. ACT 112: Negative or not required by law. Electronically signed by: Nikolas Alicia M.D. 08/31/2025 1:50 PM
--- NOTE | 2025-08-31 14:15 | Anesthesiology Progress Note ---
Date of Service August 31, 2025 Anesthesia Post Procedure Vital Signs Vital Signs: Temp Pulse Pulse Resp BP Pulse Ox O2 Del Method 08/31/25 14:00 103 H 14 121/68 92 Nasal Cannula 08/31/25 13:50 36.5 C 98 H 14 125/69 92 Room Air 08/31/25 13:40 100 H 16 127/66 97 Oxymask 08/31/25 13:30 36 C L 99 H 18 118/58 L 99 Oxymask 08/31/25 11:24 36.8 C 112 H 18 137/74 98 Room Air O2 Flow Rate 08/31/25 14:00 2 08/31/25 13:50 08/31/25 13:40 4 08/31/25 13:30 6 08/31/25 11:24 Pain Intensity Left Shoulder: Pain Intensity: 4 Transfer of Care Handoff Completed per policy Notes Mental Status: alert / awake / arousable Patient Amnestic to Procedure: Yes Nausea / Vomiting: adequately controlled Pain: adequately controlled Airway Patency, RR, SpO2: stable & adequate BP & HR: stable & adequate Hydration State: stable & adequate Anesthetic Complications: no major complications apparent
--- NOTE | 2025-08-31 14:59 | XRay Report ---
XR shoulder LT min 2V routine CLINICAL HISTORY: Post shoulder surgery COMPARISON: Earlier today FINDINGS: Left shoulder prosthesis shows no hardware complication. There is expected soft tissue gas . IMPRESSION: Unremarkable postoperative exam. ACT 112: Negative or not required by law. Electronically signed by: Nikolas Alicia M.D. 08/31/2025 2:58 PM
[2025-08-31 16:05] VITALS: RESP 18
[2025-08-31] MEDS ORDERED: METOCLOPRAMIDE HCL INJ 5 MG/ML 2 ML VIAL IV PRN (16:20)
[2025-08-31] MEDS ORDERED: ONDANSETRON INJ 2 MG/ML 2 ML VIAL IV PRN (16:20)
[2025-08-31] MEDS ORDERED: diphenhydrAMINE Capsule 25 MG CAP PO PRN (16:20)
[2025-08-31] MEDS ORDERED: MAGNESIUM HYDROXIDE SUSP 30 ML UDC PO PRN (16:20)
[2025-08-31] MEDS ORDERED: NALOXONE HCL 0.4 MG/1 ML VIAL/CARP IV PRN (16:20)
[2025-08-31] MEDS: BUPIVACAINE LIPOSOME 1.3% 133 MG/10 ML VIAL ONE (16:21)
[2025-08-31] MEDS: SODIUM CHLORIDE 0.9% 1,000 ML IV SCH (16:43)
[2025-08-31] MEDS: KETOROLAC TROMETHAMINE 15 MG/ML VIAL IV SCH (16:57)
[2025-08-31] MEDS: ASPIRIN 81 MG ECTAB PO SCH (20:38)
[2025-08-31] MEDS: DOCUSATE SODIUM 100 MG CAP PO SCH (20:38)
[2025-08-31] MEDS: SENNA 8.6 MG TAB PO SCH (20:38)
[2025-09-01 03:28] VITALS: TEMP 97.9
[2025-09-01] MEDS: MULTIVITAMIN TAB PO SCH (07:58)
[2025-09-01] MEDS: FERROUS SULFATE 325 MG TAB PO SCH (08:00)
[2025-09-01] MEDS: CYANOCOBALAMIN (B-12) 500 MCG TABLET PO SCH (08:00)
[2025-09-01] MEDS: ASCORBIC ACID 500 MG TAB PO SCH (08:01)
[2025-09-01 08:20] VITALS: BP 112/64; PULSE 108; O2SAT 96
--- NOTE | 2025-09-01 08:38 | Orthopedic Progress Note ---
Date of Service September 01, 2025 Assessment & Plan (1) Status post reverse total arthroplasty of left shoulder: Plan Overall she is doing well. She is not having much pain in the left shoulder. She will be seen by physical therapy today for ambulation and range of motion exercises. She can be discharged to home later today. She will follow-up with orthopedics in 2 weeks. Subjective Elise was seen and examined at bedside this morning. Overall she is doing very well. She is not having much pain in the left shoulder. She has been up and ambulating to the bathroom. She has no complaints.. Review of Systems All systems reviewed & are unremarkable except as noted in HPI & below. Physical Exam On physical exam of the left shoulder, the dressing is clean and dry. She is wearing her sling as instructed. She has active motion of her hand and her wrist.. Results & Data Results & Data Laboratory Results . Diagnostic Findings Postoperative x-rays of the left shoulder show the prosthesis to be in anatomic alignment without any evidence of fracture, dislocation, or loosening.. . PG Care Time/CCT Total # of Minutes Spent Total Time Spent with Patient: Total time spent is greater than 50% in coordination of care (as documented) at patient's floor/unit and/or counseling patient: Coding Level of Care Code 02418 Post Operative Follow-Up Diagnoses Status post reverse total arthroplasty of left shoulder Z96.612
[2025-09-01] MEDS ORDERED: CALCIUM MAGNESIUM PO SCH (09:00)
== END 2025-09-01 11:14 | disposition home or self-care (01) ==
LOC: ASU 11:06 → 3E 11:06